=== PATIENT | female | born 1975 | race Caucasian/White ===

== ENCOUNTER → 2016-07-14 | Day surgery (SDC) | payer OTHER ==
[2016-07-10 14:20] VITALS: BMI 29.0
[~2016-07-14] MED LIST: DEXAMETHASONE SOD PHOSPHATE 10 MG/ML 1 ML VIAL IV ONE; HYDROmorphone 1 MG/ML 1 ML SYRINGE IVP PRN; LACTATED RINGERS 1,000 ML IV SCH; LIDOCAINE 1% 20 ML VIAL (10MG/ML) FOR IV START INTRADERMA PRN; LIDOCAINE 1% INJ 10MG/ML (20 ML MDV) ONE; ONDANSETRON 4 MG/2 ML VIAL IVP ONE; PROPOFOL 10 MG/ML 20 ML VIAL IV ONE; SCOPOLAMINE 1.5MG/72HR PATCH TRANSDERM ONE; SODIUM CHLORIDE 0.9% 1,000 ML IV ONE; SUCCINYLCHOLINE CHLORIDE VIAL 200 MG/10 ML VIAL IV ONE; ceFAZolin 2 GM in SODIUM CHLORIDE 0.9% 100 ML IVPB ONE; ePHEDrine 50 MG/ML 1 ML AMP ONE; fentaNYL (PF) 50 MCG/ML 2 ML AMP ONE
[2016-07-14 07:50] VITALS: RESP 16
[2016-07-14 08:20] LABS: Basophils # (A) 0.1 k/uL (0-0.2); Basophils % (A) 2 %; CH 30.1; CHCM 34.2; Eosinophils # (A) 0.3 k/uL (0-0.7); Eosinophils % (A) 5 %; HCT 42.7 % (34.0-46.0); HDW 2.54; HGB 14.4 gm/dL (11.4-16.0); Large Platelets Flag Marked; Luc # (Auto) 0.12; Luc % (Auto) 2; Lymphocytes # (A) 1.1 k/uL (1.0-4.8); Lymphocytes % (A) 18 %; MCH 29.7 pg (25.0-35.0); MCHC 33.6 g/dL (31.0-37.0); MCV 88.3 fL (80.0-100.0); Mean Platelet Volume 13.5; Monocytes # (A) 0.4 k/uL (0-1.0); Monocytes % (A) 6 %; Neutrophils # (A) 4.3 k/uL (1.3-7.7); Neutrophils % (A) 68 %; RBC 4.83 m/uL (3.80-5.40); RDW 13.7 % (11.5-15.5); WBC 6.4 k/uL (3.8-10.6); WBC (Perox) 6.23
[2016-07-14 08:49] LABS: Manual Review Performed; RBC Morphology Normal
[2016-07-14 08:50] LABS: Large Platelets Present
[2016-07-14 11:31] VITALS: TEMP 97.8
[2016-07-14 12:48] VITALS: BP 114/71; PULSE 81
--- NOTE | 2016-07-14 12:51 | OP ---
DATE OF SERVICE: SURGEON: LOS LOPEZ MD TRAFFIC SURVEY TECHNICIAN: PREOPERATIVE DIAGNOSES: 1. Acquired loss, right breast. 2. History of mastectomy. 3. History of breast cancer. POSTOPERATIVE DIAGNOSES: 1. Acquired loss, right breast. 2. History mastectomy. 3. History of breast cancer. OPERATIVE PROCEDURES: Delayed reconstruction right breast with insertion of tissue buttermaker helper and subsequent outpatient expansion. ANESTHESIA: ESTIMATED BLOOD LOSS: SPECIMENS REMOVED: COMPLICATIONS: OPERATIVE FINDINGS: DESCRIPTION OF PROCEDURE: OPERATIVE INDICATIONS: Patient is a 40-year-old female with right-sided breast cancer. She initially underwent bilateral mastectomy procedures with immediate placement of tissue expanders. The patient's initial postoperative course was uncomplicated. She did require chemotherapy and also radiation therapy. During the radiation therapy time the patient developed wound involving the right reconstructive breast which was where she was given radiation treatment and ultimately, the buttermaker helper required removal. She did heal and this completed radiation therapy, has remained healed for several months with no troubles. She desires further breast reconstruction, has elected to proceed with a second attempt of tissue expansion. She understands potential risks and complications associated with the surgery as well as the nature. The staged nature of breast reconstructive surgery. She has requested I perform this procedure today. Additionally, the patient has ITP, hematology evaluation has been obtained for the procedure and she has been cleared for the procedure. She did receive of 5 units of platelets yesterday. Her platelet count today prior surgery is 26,000. I spoke with the patient's rail car loader Dr. Bonds and he recommended additional transfusion of 1 unit of platelets at the time of surgery and felt it was safe to proceed with the procedure. The patient understands this in detail. Operative procedure summary: The patient was seen in the presurgical area. Markings were made, procedure reviewed, all questions answered. She was transported to the operating room where she was placed in supine position. Following induction of general endotracheal anesthesia, the patient was prepped and draped in the usual fashion. All surgery performed under loupe magnification. The right breast mastectomy scar was outlined in elliptical fashion, now sharply excised using a 10 blade scalpel sending the excised scar tissue to pathology. Hemostasis maintained with cautery. Cauterization was used to divide the remaining scar tissue until identifying the muscle fascia and muscle layers. Skin and subcutaneous tissue flap was then dissected off the muscle fascia and muscle where necessary to obtain sufficient exposure of the muscles, muscle layer. Incision was made through the muscle fibers following the direction of the pectoralis major muscle in a diagonal fashion dividing the muscle, exposing the prior expansion cavity. This area was heavily scarred and extensive dissection was required to release the muscle from the scar tissue for recreation of the muscular flap coverage of the buttermaker helper. Dissection was performed with cauterization and once sufficient, hemostasis maintained with cautery. Extensive irrigation performed using with several liters of saline. The cavity was sized. A tissue buttermaker helper was opened on the field after first changing gloves. The buttermaker helper was from the [employer], reference # [id number], serial #[id number] with a volume of 475 mL. The device was only handled by surgeon, irrigated with saline. All air was extracted and 50 mL of 0.9 normal saline instilled. It was inserted into the reconstructive submuscular position created and once optimally oriented, the muscle flap was closed directly over the buttermaker helper using running 3-0 Vicryl suture. Additional 50 mL of 0.9 normal saline instilled in the buttermaker helper. We placed a slight amount of tension on the muscle flap tissue. Additional irrigation was performed. Hemostasis was excellent. A 19 round Thomas channel drain placed over the muscle flap tissue, underneath the skin and subcutaneous tissue. Dissection flaps then brought out through a separate stab incision in the right lateral chest wall, sutured in place with 2-0 Prolene. The drain was cut to the appropriate length. The skin incision was now closed, approximating Herson's layer using widely spaced inverted 4-0 Monocryl and then deep dermis using inverted, interrupted 4-0 Monocryl and closing the superficial dermis and epidermis with running 5-0 Prolene. Surgical perla were cleansed with saline, dried, and postoperative bandages placed using 4 x 4's, Kerlix squares secured with paper tape. The patient's drain was connected, closed bulb suction patent. She was then awakened from her anesthetic, extubated and transferred to the recovery room in good condition with stable vital signs. There were no complications.
== END | disposition home or self-care (01) ==
LOC: OR 07:24
PROVIDERS: ATTEND Plastic Surgery
DX: Z42.1 Encounter for breast reconstruction following mastectomy (principal); Z85.3 Personal history of malignant neoplasm of breast; Z90.13 Acquired absence of bilateral breasts and nipples; Z92.21 Personal history of antineoplastic chemotherapy; Z92.3 Personal history of irradiation; D69.3 Immune thrombocytopenic purpura; J45.990 Exercise induced bronchospasm; F32.9 Major depressive disorder, single episode, unspecified; F41.9 Anxiety disorder, unspecified; K21.9 Gastro-esophageal reflux disease without esophagitis; Z79.899 Other long term (current) drug therapy; Z88.5 Allergy status to narcotic agent; Z88.4 Allergy status to anesthetic agent
CPT/HCPCS: 81025; 36430; 85025; 19357; P9035; J0330; J1100; J0690; J2405; J2001; J3010; J2704

== ENCOUNTER 2017-01-19 06:01 | Day surgery (SDC) | payer OTHER ==
[2017-01-11 15:11] VITALS: BMI 30.7
[~2017-01-19 06:01] MED LIST changes: -HYDROmorphone 1 MG/ML 1 ML SYRINGE IVP PRN; -LIDOCAINE 1% INJ 10MG/ML (20 ML MDV) ONE; -PROPOFOL 10 MG/ML 20 ML VIAL IV ONE; +Pre Op ABX Message 1 EACH MISC MISCELLANE ONE; -SODIUM CHLORIDE 0.9% 1,000 ML IV ONE; -SUCCINYLCHOLINE CHLORIDE VIAL 200 MG/10 ML VIAL IV ONE; -ceFAZolin 2 GM in SODIUM CHLORIDE 0.9% 100 ML IVPB ONE; -ePHEDrine 50 MG/ML 1 ML AMP ONE; +fentaNYL (PF) 50 MCG/ML 2 ML AMP IV PRN; -fentaNYL (PF) 50 MCG/ML 2 ML AMP ONE
[2017-01-19] MEDS ORDERED: LIDOCAINE 1% 20 ML VIAL (10MG/ML) FOR IV START INTRADERMA ONE (06:37)
[2017-01-19 07:48] LABS: Basophils # (A) 0.1 k/uL (0-0.2); Basophils % (A) 1 %; CHCM 33.6; Eosinophils # (A) 0.4 k/uL (0-0.7); Eosinophils % (A) 4 %; HCT 43.1 % (34.0-46.0); HDW 2.38; HGB 14.8 gm/dL (11.4-16.0); Large Platelets Flag Marked; Luc # (Auto) 0.22; Luc % (Auto) 3; Lymphocytes # (A) 2.1 k/uL (1.0-4.8); Lymphocytes % (A) 25 %; MCH 29.7 pg (25.0-35.0); MCHC 34.3 g/dL (31.0-37.0); MCV 86.6 fL (80.0-100.0); Mean Platelet Volume 13.4; Monocytes # (A) 0.4 k/uL (0-1.0); Monocytes % (A) 5 %; Neutrophils # (A) 5.2 k/uL (1.3-7.7); Neutrophils % (A) 62 %; RBC 4.98 m/uL (3.80-5.40); RDW 12.7 % (11.5-15.5); WBC 8.5 k/uL (3.8-10.6); WBC (Perox) 8.48
[2017-01-19 07:57] LABS: Large Platelets Present; Manual Review Performed; RBC Morphology Normal
[2017-01-19] MEDS ORDERED: ePHEDrine SULFATE/0.9% NACL/PF 50 MG/5 ML SYRINGE IV ONE (08:05)
[2017-01-19] MEDS ORDERED: NEOSTIGMINE 1 MG/ML 10 ML VIAL ONE (08:05)
[2017-01-19] MEDS ORDERED: LIDOCAINE 1% INJ 10MG/ML (20 ML MDV) ONE (08:05)
[2017-01-19] MEDS ORDERED: ROCURONIUM BROMIDE 10 MG/ML 10 ML VIAL IV ONE (08:05)
[2017-01-19] MEDS ORDERED: SODIUM CHLORIDE 0.9% 50 ML BAG ONE (08:05)
[2017-01-19] MEDS ORDERED: SUCCINYLCHOLINE CHLORIDE 100 MG/5 ML SYR IV ONE (08:05)
[2017-01-19] MEDS ORDERED: GLYCOPYRROLATE 0.2 MG/ML 2 ML VIAL ONE (08:05)
[2017-01-19] MEDS ORDERED: PHENYLEPHRINE-0.9% NACL SYG 1 MG/10 ML SYRINGE ONE (08:05)
[2017-01-19] MEDS ORDERED: SODIUM CHLORIDE 0.9% 0 ML with ceFAZolin 2,000 MG IV ONE ×2 (08:05)
[2017-01-19] MEDS ORDERED: PROPOFOL 10 MG/ML 20 ML VIAL IV ONE (08:05)
[2017-01-19] MEDS ORDERED: fentaNYL (PF) 50 MCG/ML 2 ML AMP ONE (08:05)
[2017-01-19] MEDS ORDERED: LACTATED RINGERS 1,000 ML IV ONE (09:40)
[2017-01-19 10:22] VITALS: TEMP 98.6
[2017-01-19 11:18] VITALS: PULSE 85
[2017-01-19 11:31] VITALS: BP 128/69; RESP 16
--- NOTE | 2017-01-19 12:26 | OP ---
OPERATIVE REPORT SURGEON: Dr. Dylon Plata. DATE OF SURGERY: January 19, 2017. PREOPERATIVE DIAGNOSES:: 1. Acquired absence, right and left breasts. 2. Personal history of breast cancer. 3. Personal history of bilateral mastectomy. 4. Acquired deformity of right right and left reconstructed breasts. 5. Acquired loss, right and left breast inframammary folds. POSTOPERATIVE DIAGNOSES:: 1. Acquired absence of right and left breasts. 2. Personal history of breast cancer. 3. Personal history of bilateral mastectomy. 4. Acquired deformity of right and left reconstructed breasts. 5. Acquired loss of right left breast inframammary folds. OPERATION:: 1. Replace right reconstructed breast tissue chief engineer research with silicone breast implants for breast reconstruction. 2. Revision of right reconstructed breast. 3. Replace left reconstructed breast tissue chief engineer research with silicone breast implant for breast reconstruction. 4. Revision, left reconstructed breast. 5. Reconstruction right left breast inframammary folds via local advancement flaps, total area 59 cm2. 6. Implantation of reconstructive graft from the right and left breast reconstruction, 300 cm2. ESTIMATED BLOOD LOSS:: SPECIMEN TAKEN:: OPERATIVE INDICATIONS: The patient is a 41-year-old female who has undergone bilateral mastectomies for treatment of breast cancer. She also required chemotherapy and radiation treatment. At that time of her mastectomy procedure, tissue chief engineer research reconstruction was initiated. The patient was expanded somewhat prior to radiation, but not completely. After completing radiation therapy and allowing her body to rest for 6 months, she completed expansion, is here today for the second stage of her breast reconstruction. The patient is aware of the potential risks and complications, including added risks and complications due to her ITP. I did communicate with the patient's financial recruiter, who would recommend proceeding with surgery as long as platelets were above 30. This morning's platelet count was 44,000. Additionally the patient understands other risks include infection, hematoma, seroma, asymmetry, the need for future surgery, wound healing problems, among others. She has requested I perform the surgery. NARRATIVE:: The patient was seen in the presurgical area, markings made, procedure reviewed, all questions answered. She was transported to the operating room, where she was placed in supine position. Following induction of general endotracheal anesthesia, the patient was prepped and draped in usual fashion. All surgery performed with loupe magnification. Surgery was initiated on the right side. The right breast scar was irregular and uneven. The scar was outlined in elliptical fashion, sharply excised using a 10 blade scalpel, sending the scar tissue to Pathology. Cauterization was used to divide underlying subcutaneous tissue until reaching the muscle fascial layer. Skin subcutaneous tissue flaps were then elevated off the muscle fascia. There was significant scar tissue in this layer. This was required to allow redraping of the skin to the correct contour irregularities where present. Extensive dissection was required. The muscle fascial reconstructive graft plane was divided in transverse fashion, exposing the chief engineer research. Retail Analyst was removed. The patient's expansion capsule was hypertrophic and thickened. A complete capsulotomy was made where the capsule joined the chest wall and then multiple cruciate incisions through the capsular structure released the tightness present. Hemostasis was maintained with cautery. Irrigation was performed. The right inframammary fold was now reconstructed. The area for the fold was 23 cm transversely by 1 cm vertically. The dissection was carried through the inferior capsulotomy incision, elevating skin and subcutaneous tissue flaps. Once a sufficient size area was elevated, it was advanced in a cephalad fashion and secured to the chest wall using several interrupted 2-0 Vicryl sutures. A discrete inframammary fold created on the right. Irrigation was performed. Hemostasis was excellent. Temporary breast implant sizer was open on the field. Ultimately a 500 cc sizer appeared optimal. The patient's attention was now turned toward the patient's left reconstructed breast. Again, the scar was irregular and uneven and thick. The scar was outlined in elliptical fashion, sharply excised, sending scar tissue to Pathology. A 10 blade scalpel used for this and hemostasis maintained with cautery. The skin and subcutaneous tissue flaps were then elevated off the muscle flap layer. Significantly less scarring was present on this side. Extensive dissection was required to allow redraping of the skin to correct uneven contour irregularities. Once this was completed, the muscle fascial layer was divided in transverse fashion inferior to the mastectomy scar excision site, exposing the chief engineer research. Retail Analyst was removed intact. The expansion capsule on this side was not as thick or hypertrophic as the other side. Complete capsulotomy incision was made where the capsule joint the chest wall and then multiple cruciate incisions made through the capsule to release the tightness of the structure. Inferiorly, the dissection was performed to create the left inframammary fold. This fold was more effaced than on the right side and measured 18 cm x 2 cm. Dissection was carried through the inferior capsulotomy incision, dissecting skin and subcutaneous tissue for cephalad elevation. Once the required size was obtained, the skin and subcutaneous tissue flap was advanced cephalad, secured to the chest wall expansion capsule base and then using interrupted 2-0 Vicryl in several locations, creating a discrete inframammary fold in a symmetric position to the one created on the right. Irrigation was performed. Hemostasis was excellent. Temporary breast implant sizer was opened on the field and inserted in the cavity. Ultimately, 600 mL appeared optimal and appeared to create even volume between right and left sides. The patient was evaluated in seated up position with incisions temporarily closed with thea. She was returned to supine position, all thea removed, temporary breast implant sizers removed. Extensive irrigation was performed. Hemostasis was maintained on each side with cautery and excellent. Gloves were now changed. The right-sided breast implant was opened on the field. The implants were from the [employer], memory gel breast implants; smooth, round, high-profile, style 4000 smooth. The right-sided implant measured 500 mL, reference #[id number] , serial #[id number]. Device was only handled by surgeon after irrigating with saline, inserted in the reconstructive cavity. The muscle fascial layers could not be approximated over the implant. SurgiMend measuring 10 x 15 cm had been opened onto the field, revitalized under room temperature saline now inserted into the reconstructive cavity. The SurgiMend was thin and fenestrated. It was placed in an inferior sling formation, secured to muscle fascial layers using 3-0 Vicryl simple sutures. Complete coverage of the implant was obtained. The incision was now closed, approximating deep dermal tissues using inverted interrupted 4-0 Monocryl followed by closure of skin using horizontal mattress suture in a running fashion with 5-0 Prolene. Attention was turned toward the left side. Again, gloves were changed. The left-sided breast implant opened on the field. This time, the implant measured 600 mL. Again, same style; 4000 smooth, and also a [employer] mammary gel breast implant, smooth, round, high-profile. The reference number for this device was [id number] and the serial #[id number]. Device was only handled by the surgeon. After opening, it was irrigated with saline and then inserted in the reconstructive cavity. Again, SurgiMend was required, as the muscle flap tissue could not be approximated over the implant without creasing and placing significant tension on the implant. The SurgiMend measured 10 x 15 cm, thin and fenestrated. The SurgiMend was revitalized in room temperature saline. Once ready, inserted in reconstructive cavity, oriented in an inferior sling formation and secured to the muscle fascial layers using interrupted simple 3-0 Vicryl. The incision was then closed, approximating to the deep dermis using inverted interrupted 4-0 Monocryl and the closure of the epidermis and superficial dermal layer with running horizontal mattress suture of 5-0 Prolene. Surgical perla cleansed on each side, dried, postoperative bandages placed using 1-inch paper tape that was sterile followed by 4 x 4's, ABD pads and then positioning size 3 mammary support. The patient was awakened from her anesthetic, extubated and transferred to the recovery room in good condition with stable vital signs. There were no complications. LUCYODL / IJN: [id number] /
--- NOTE | 2017-01-20 14:02 | OP ---
OPERATIVE REPORT Incomplete. See other dictation for 01-19-17 MTDD
== END 2017-01-19 12:06 | disposition home or self-care (01) ==
LOC: OR 06:01 → 6PED 10:04 → OR 12:06
PROVIDERS: ATTEND Plastic Surgery
DX: Z42.1 Encounter for breast reconstruction following mastectomy (principal); Z85.3 Personal history of malignant neoplasm of breast; Z98.82 Breast implant status; Z90.13 Acquired absence of bilateral breasts and nipples; L08.9 Local infection of the skin and subcutaneous tissue, unspecified; D69.3 Immune thrombocytopenic purpura; F32.9 Major depressive disorder, single episode, unspecified; J45.990 Exercise induced bronchospasm; Z87.891 Personal history of nicotine dependence; Z92.3 Personal history of irradiation; Z92.21 Personal history of antineoplastic chemotherapy; Z88.5 Allergy status to narcotic agent; Z88.8 Allergy status to other drugs, medicaments and biological substances; Z79.899 Other long term (current) drug therapy
CPT/HCPCS: 11970; 88304; 85025; 15777; C1789; C1763; J1100; J2710; J2405; J2001; J3010; J0690; J2370; J0330; J2704

== ENCOUNTER → 2017-03-31 | Outpatient (CLI) | payer OTHER ==
--- NOTE | 2017-03-31 09:29 | CT ---
EXAMINATION TYPE: CT ChestAbdPelvis w con DATE OF EXAM: 03/31/2017 COMPARISON: 07/09/2015, 07/27/2015, 05/22/2015 HISTORY: Breast Cancer CT DLP: 1157 mGycm Automated exposure control for dose reduction was used. CONTRAST: CT scan of the chest, abdomen and pelvis is performed with Oral Contrast and with IV Contrast, patien t injected with 100 ml mL of Omnipaque 300. FINDINGS: The heart is normal size without pericardial effusion. Lung bases are clear with mild dependent atele ctasis. No focal liver lesion or biliary ductal dilatation. Hepatic steatosis noted. Portal venous system is patent. Cholecystectomy clips are present. Adrenal glands, right kidney, and pancreas appear within normal limits. Left kidney shows a tiny subc entimeter hypodensity along the anterior lower pole, too small for accurate CT characterization is st able. Spleen is borderline enlarged at 13.7 cm. No mesenteric or retroperitoneal lymphadenopathy. Scattered mild stool throughout the colon without pericolonic inflammatory change. While the appendix is not discretely visualized, no focal inflammatory changes within the right lower quadrant to suppo rt acute appendicitis. Bladder is urine distended. Uterus and both ovaries are visualized. Hypodense area within the right ovary is stable may represent ovarian cyst. Rectum appears normal. No abnormal fluid collection the pelvis or pelvic lymphadenopathy. No osseous destructive process. Low density within the pretracheal space and mediastinum measures approximately 20 Hounsfield units m ay represent smaller amount of pericardial fluid recess versus low density adenopathy unchanged from previous exam. There are now subsegmental consolidation within the anterior segment of the right upper lobe. This co uld represent an area of pneumonitis. Pulmonary arteries enhance normally by standard technique. If t he patient had a previous or recent radiation treatment planning consider radiation pneumonitis. Pleural-based thickening is noted with a small area of nodularity in the right upper lobe posteriorly which likely is postinflammatory. Previous breast implant surgery noted. Hypodensity within the tail the pancreas measures -9 Hounsfield units likely representing a small lip bashir or intrapancreatic fat. Could be followed on a 6 month basis given the small size measuring 4 mm IMPRESSION: 1. No diagnostic evidence of metastases. Low density within the anterior mediastinum in the pretrache al space is stable dating back to previous exams and PET scan. Low density adenopathy with short axis measurement of 9 mm or given the area did not demonstrate abnormal uptake by previous PET scan a sma ll amount of fluid within the pericardial recess may be the etiology. 2. Borderline splenomegaly at 13.7 cm. 3. Tiny subcentimeter lesion inferior pole left kidney, too small for accurate CT characterization. F indings stable. 4. Interval development of subsegmental consolidation anterior segment right upper lobe. Findings may been the basis of an atelectasis or pneumonitis. If the patient has had previous radiation than radi ation pneumonitis would be consideration. Correlate clinically. 5. New low density lesion tail the pancreas measures a -9 Hounsfield units likely related to fat. Sub sequent follow-up CT scan short-term basis recommended given small size of the lesion.
--- NOTE | 2017-03-31 09:50 | US ---
EXAMINATION TYPE: US venous doppler duplex LE BI DATE OF EXAM: 03/31/2017 9:06 AM COMPARISON: NONE CLINICAL HISTORY: M79.661 M79.662 nicolas lower leg pain. History of chronic DVT left leg per patient. SIDE PERFORMED: Bilateral TECHNIQUE: The lower extremity deep venous system is examined utilizing real time linear array sonog jessica with graded compression, doppler sonography and color-flow sonography. VESSELS IMAGED: External Iliac Vein (EIV) Common Femoral Vein Deep Femoral Vein Greater Saphenous Vein * Femoral Vein Popliteal Vein Small Saphenous Vein * Proximal Calf Veins (* superficial vessels) Right Leg: Negative for DVT Left Leg: Negative for DVT Grayscale, color doppler, spectral doppler imaging performed of the deep veins of the bilateral lower extremities. There is normal flow, compressibility, vascular waveforms. IMPRESSION: No ultrasound evidence for acute DVT in either lower extremity.
--- NOTE | 2017-03-31 11:59 | NM ---
EXAMINATION TYPE: NM bone scan whole body DATE OF EXAM: 03/31/2017 COMPARISON: CT chest abdomen pelvis same day and to prior CT chest 07/09/2015, nuclear medicine PET/CT 07/27/2015 HISTORY: Breast cancer Delayed whole-body scanning was performed following the injection of 28.5 mCi Tc 99m MDP. Images acq uired 3 hours post injection. FINDINGS: Small focus of increased radio pharmaceutical uptake is noted to level of anterior right sixth rib wh ich corresponds to a sclerotic focus on CT, possibly the seventh anterior left rib. A sclerotic focus in the anterior right sixth rib has developed in the interval compared to previous CT scan and PET C T. Soft tissue uptake is normal. Uptake in the feet and ankles, wrists and hands, shoulders is likely degenerative. IMPRESSION: Correlate for history of trauma or possibly postradiation treatment to the right sixth rib anteriorly . Metastatic disease is not excluded.
== END | disposition home or self-care (01) ==
LOC: RADCTMAIN 07:08
PROVIDERS: ATTEND Internal Medicine Hematology & Oncology
DX: C50.411 Malignant neoplasm of upper-outer quadrant of right female breast (principal); J18.1 Lobar pneumonia, unspecified organism; K86.89 Other specified diseases of pancreas; R16.1 Splenomegaly, not elsewhere classified; R59.0 Localized enlarged lymph nodes; Z88.8 Allergy status to other drugs, medicaments and biological substances
CPT/HCPCS: 93970; 71260; 74177; 78306; A9503; Q9967

== ENCOUNTER → 2017-06-01 | Outpatient (CLI) | payer OTHER ==
[2017-06-01 18:59] LABS: Albumin 4.8 g/dL (3.5-5.0); Bilirubin, Delta 0.3 mg/dL (0.0-0.2); Bilirubin,Unconjugated 0.4 mg/dL (0.0-1.1); Total Bilirubin 0.7 mg/dL (0.2-1.3); Total Protein 7.9 g/dL (6.3-8.2)
[2017-06-02 19:58] LABS: Iron Saturation 34.19 (12.00-45.00)
[2017-06-02 20:45] LABS: Hepatitis B Core IgM Non-Reactive (Non-Reactive)
[2017-06-02 21:48] LABS: Hepatitis A Antibody IgM Non-Reactive (Non-Reactive)
[2017-06-03 12:15] LABS: Ceruloplasmin 31.5 mg/dL (20.0-60.0)
== END | disposition home or self-care (01) ==
LOC: MMGSC 12:48
PROVIDERS: ATTEND Family Medicine
DX: R79.89 Other specified abnormal findings of blood chemistry (principal)
CPT/HCPCS: 36415; 80074; 80076; 82103; 82390; 82728; 83516; 83540; 83550

== ENCOUNTER → 2017-06-10 | Outpatient (CLI) | payer OTHER ==
--- NOTE | 2017-06-10 10:23 | US ---
EXAMINATION TYPE: US abdomen limited DATE OF EXAM: 06/10/2017 COMPARISON: CT 2016, US 2014 CLINICAL HISTORY: R94.5 Elevated liver function. Elevated liver enzymes, history of cholecystectomy EXAM MEASUREMENTS: Liver Length: 15.9 cm Gallbladder Wall: surgically absent CBD: 0.5 cm Right Kidney: 9.6 x 5.4 x 4.9 cm Pancreas: visualized portions wnl, tail obscured by overlying midline bowel gas Liver: increased echogenicity throughout, increased attenuation, decreased visualization of vessels suggestive of fatty infiltrate Gallbladder: surgically absent Evidence for sonographic Helm's sign: no CBD: visualized portions wnl, limited by overlying bowel gas Right Kidney: no hydro or masses seen IMPRESSION: 1. Moderate fatty infiltration liver. 2. Postsurgical changes. 3. No acute ultrasound abnormality.
== END | disposition home or self-care (01) ==
LOC: RADUSWWP 08:22
PROVIDERS: ATTEND Family Medicine
DX: K76.0 Fatty (change of) liver, not elsewhere classified (principal); Z98.890 Other specified postprocedural states
CPT/HCPCS: 76705

== ENCOUNTER → 2017-08-31 | Outpatient (CLI) | payer OTHER ==
--- NOTE | 2017-09-01 10:18 | US ---
EXAMINATION TYPE: US axilla RT DATE OF EXAM: 08/31/2017 COMPARISON: NONE CLINICAL HISTORY: R68.89 Abnormal Clinical Findings. Ed mastectomy 2014 ,cancer rt side , prophylact ic left breast, ed implants with history of infection from implant on rt side pain rt axilla , lateral implant area was where ribs felt per dr church. But i included that area per pt request and or isidro was abnormal clinical finding. rt axilla Patient's right implant is noted incidentally at its lateral margin. No evident mass. wnl IMPRESSION: No abnormality evident in the right axilla, follow-up as indicated
== END ==
LOC: RADUSWWP 16:48
PROVIDERS: ATTEND Internal Medicine Hematology & Oncology
DX: R68.89 Other general symptoms and signs (principal); C50.411 Malignant neoplasm of upper-outer quadrant of right female breast; Z88.8 Allergy status to other drugs, medicaments and biological substances; Z88.5 Allergy status to narcotic agent

== ENCOUNTER → 2017-12-16 | Outpatient (CLI) | payer OTHER ==
--- NOTE | 2017-12-17 02:10 | CT ---
EXAMINATION TYPE: CT abdomen pelvis w con DATE OF EXAM: 12/16/2017 COMPARISON: 03/31/2017 HISTORY: 22-year-old female Elevated liver enzymes. History of breast cancer. TECHNIQUE: Contiguous axial scanning of the abdomen and pelvis following administration of 100 ml Iso zoe 300 IV contrast. Delayed images through the kidneys and coronal/sagittal reconstructions perform ed. CT DLP: 880.9 mGycm Automated exposure control for dose reduction was used. FINDINGS: Heart normal size without pericardial effusion. The visualized bilateral breast implants. Lung bases clear without pleural effusion. Tiny hiatal hernia. Liver enlarged measuring 21.5 cm with a marked diffuse low-attenuation. No focal lesion seen. No bili candy ductal dilatation. Portal venous system is patent. Cholecystectomy clips. Adrenal glands, right kidney, spleen, pancreas appear within normal limits. Ti ny subcentimeter hypodensity medial upper pole and medial lower pole left kidney too small for accura te CT characterization, likely tiny cysts. No dilated small bowel, free fluid, or free air. No mesenteric or retroperitoneal lymphadenopathy. Oral contrast has progressed to the proximal transverse colon. There is some mural-based thickening a long the lower ascending colon suspected to represent stool material, refer to axial image 52 and cor onal image 28. No pericolonic inflammatory change. Bladder partially distended. Uterus and both ovaries are visualized. No abnormal fluid collection in the pelvis or pelvic lymphadenopathy. Bones: No osseous destructive process. IMPRESSION: 1. HEPATOMEGALY (21.5 CM) WITH MARKED HEPATIC STEATOSIS. NO BILIARY DUCTAL DILATATION. 2. MURAL BASED THICKENING ALONG THE LOWER ASCENDING COLON SUSPECTED TO REPRESENT ADHERENT STOOL MATER IAL. CORRELATE WITH FECAL OCCULT BLOOD TESTING TO THE NEED FOR DIRECT VISUALIZATION. 3. TINY HIATAL HERNIA.
== END | disposition home or self-care (01) ==
LOC: RADCTMAIN 14:11
PROVIDERS: ATTEND Internal Medicine Hematology & Oncology
DX: K76.0 Fatty (change of) liver, not elsewhere classified (principal); K63.89 Other specified diseases of intestine
CPT/HCPCS: 74177; Q9967

== ENCOUNTER → 2018-01-15 | Outpatient (CLI) | payer OTHER ==
--- NOTE | 2018-01-17 19:27 | PE ---
EXAMINATION TYPE: PET CT fusion skull to thigh DATE OF EXAM: 01/15/2018 CLINICAL HISTORY: 42-year-old female with right breast cancer restaging diagnosed in July 2015 statu s post surgery in July 2016 and chemoradiation completed in 2017. Bilateral mastectomies. TECHNIQUE: Following the intravenous administration of 12.1 mCi of F-18 FDG, whole body images are performed from the skull base to the midthigh. Images are reviewed on the computer in the coronal, a xial, and sagittal planes. Reconstructed rotating images are created on independent workstation and reviewed on the computer. A localization and attenuation correction CT is performed in conjunction with the PET scan. Glucose level: 99 mg/dL CTDI: 5.24 mGy DLP: 466.09 mGy-cm COMPARISON: Abdomen and pelvis 12/16/2017 and chest 03/31/2017 FINDINGS: PET: Symmetrical bilateral palatine tonsillar uptake, max SUV 5.6, likely physiologic. Additional small area of focal uptake in the region of the right lobe of the thyroid gland, max SUV 2 .4. Thyroid ultrasound could assess for any underlying nodule. Bilateral breast implants. There is skin and trabecular thickening along the right breast reconstruct ion with associated increased uptake suggestive of chronic posttreatment changes. Hypodensity in the paratracheal region extending along the pretracheal region extending up to 4.1 x 1 .0 cm is unchanged from 03/31/2017 and shows no discrete FDG uptake, possible fluid along the superio r pericardial recess. Average liver SUV 1.3. Variable [id number] FDG uptake throughout bowel loops suggest physiologic uptake. 6 mm low-density area in the pancreatic tail is unchanged and shows no FDG uptake. Likely interposed fat. Otherwise, physiologic FDG uptake within the abdomen and pelvis. Variable mild to borderline moderate degenerative uptake throughout the marrow structures probably du e to red marrow hyperplasia. ATTENUATION CORRECTION CT: Visualized paranasal sinuses are clear. No cervical lymph adenopathy identified. Heart upper limits of normal in size without pericardial effusion. Mild diffuse bronchial wall thick ening without consolidation or pleural effusion. Marked hepatic steatosis. Small hiatal hernia. Cholecystectomy clips. No dilated small bowel, free fl uid, or free air. No mesenteric or retroperitoneal lymphadenopathy. Bladder nondistended. Uterus and both ovaries are visualized. No abnormal fluid collection the pelvis or pelvic lymphadenopathy. IMPRESSION: 1. Bilateral mastectomies with breast reconstructions and posttreatment changes along the right chest wall. 2. No suspicious CT findings or metabolic evidence for recurrent or metastatic disease. 3. Mild uptake within a right thyroid nodule. Thyroid ultrasound can further evaluate. 4. Marked hepatic steatosis and small hiatal hernia.
== END | disposition home or self-care (01) ==
LOC: RADPETMAIN 08:35
PROVIDERS: ATTEND Internal Medicine Hematology & Oncology
DX: E04.1 Nontoxic single thyroid nodule (principal); C50.411 Malignant neoplasm of upper-outer quadrant of right female breast; Z90.13 Acquired absence of bilateral breasts and nipples
CPT/HCPCS: 78815; A9552

== ENCOUNTER 2018-02-01 09:17 | Day surgery (SDC) | payer OTHER ==
[2018-01-28 11:18] VITALS: BMI 31.4
[~2018-02-01 09:17] MED LIST changes: -Pre Op ABX Message 1 EACH MISC MISCELLANE ONE; -fentaNYL (PF) 50 MCG/ML 2 ML AMP IV PRN
[2018-02-01 10:22] VITALS: RESP 16; TEMP 97.4
[2018-02-01] MEDS ORDERED: PROPOFOL 10 MG/ML 20 ML VIAL IV ONE ×2 (10:56→11:20)
--- NOTE | 2018-02-01 11:23 | P.PCN ---
Date of Procedure: 02/01/18 Procedure(s) Performed: Procedure: Esophagogastroduodenoscopy and biopsy. Preoperative diagnosis: Chronic reflux symptoms requiring therapy. Postoperative diagnosis: 1. Small sliding hiatal hernia with no obvious esophagitis or complicated reflux disease. 2. Mild antral gastritis. 3. Multiple biopsies obtained from the duodenum, antrum and esophagus. Preparation and sedation: Was provided by anesthesia. Brief clinical history: The patient is a 42-year-old female who has been having issues with reflux for many years and has taken PPIs for more than 20 years. She has recurrence of her heartburn if she stops her medications even for 1 day. She has no other alarm symptoms. She had a prior EGD around 2009. This evaluation is to assess for complicated reflux disease or other pathology. Procedure: With the patient on her left lateral decubitus position and after informed consent and adequate sedation, I passed the Olympus-GIF 160 video upper endoscope through the cricopharyngeus down the esophagus. GE junction was around 35 cm from the incisors and there was a small sliding hiatal hernia but no obvious esophagitis or complicated reflux disease. There were no tumors or obstruction. The endoscope was then passed into the stomach which was insufflated with air and inspected in detail including the retroflex view in the cardia. There was some mottling and erythema in the antrum but no ulcers or erosions. Pyloric channel, duodenal bulb, post bulbar area and descending duodenum appeared within normal limits. Because of her symptoms, I obtained biopsies from the duodenum, antrum and esophagus then the endoscope was withdrawn. The patient tolerated the procedure well. Plan: The patient was reassured. Will await the biopsy results and make further plans based on her course and biopsy results. She will follow-up with you as planned and I will be happy to see in the office if her symptoms change.
[2018-02-01 11:41] VITALS: BP 116/75; PULSE 74
== END 2018-02-01 11:58 | disposition home or self-care (01) ==
LOC: ORWHC2ENDO 09:17
DX: K29.50 Unspecified chronic gastritis without bleeding (principal); K44.9 Diaphragmatic hernia without obstruction or gangrene; K21.0 Gastro-esophageal reflux disease with esophagitis; J45.909 Unspecified asthma, uncomplicated; Z86.718 Personal history of other venous thrombosis and embolism; D69.3 Immune thrombocytopenic purpura; Z90.49 Acquired absence of other specified parts of digestive tract; Z85.3 Personal history of malignant neoplasm of breast; Z88.4 Allergy status to anesthetic agent; Z87.891 Personal history of nicotine dependence; Z79.899 Other long term (current) drug therapy
CPT/HCPCS: 88305; 43239; J2704

== ENCOUNTER → 2018-09-19 | Outpatient (CLI) | payer OTHER ==
[2018-09-19 10:14] LABS: Anion Gap 11 mmol/L; Blood Urea Nitrogen 15 mg/dL (7-17); Carbon Dioxide 26 mmol/L (22-30); Chloride 103 mmol/L (98-107); Glucose 94 mg/dL (74-99); Potassium 4.2 mmol/L (3.5-5.1); Sodium 140 mmol/L (137-145)
[2018-09-19 10:28] LABS: Basophils # (A) 0.1 k/uL (0-0.2); Basophils % (A) 2 %; Eosinophils # (A) 0.3 k/uL (0-0.7); Eosinophils % (A) 4 %; HCT 46.3 % (34.0-46.0); Lymphocytes # (A) 2.2 k/uL (1.0-4.8); Lymphocytes % (A) 29 %; MCH 27.9 pg (25.0-35.0); MCHC 32.4 g/dL (31.0-37.0); Mean Platelet Volume 14.6; Monocytes # (A) 0.4 k/uL (0-1.0); Monocytes % (A) 5 %; Neutrophils # (A) 4.4 k/uL (1.3-7.7); Neutrophils % (A) 57 %; RBC 5.38 m/uL (3.80-5.40); RDW 14.2 % (11.5-15.5); WBC 7.7 k/uL (3.8-10.6)
[2018-09-19 12:35] LABS: Large Platelets Present; Platelet Count 38 k/uL (150-450)
== END | disposition home or self-care (01) ==
LOC: LABPAT 08:40
PROVIDERS: ATTEND Internal Medicine Hematology & Oncology
DX: Z01.812 Encounter for preprocedural laboratory examination (principal); C50.919 Malignant neoplasm of unspecified site of unspecified female breast; Z17.0 Estrogen receptor positive status [ER+]
CPT/HCPCS: 80051; 82565; 82947; 84520; 85025; 87086

== ENCOUNTER 2018-09-27 06:01 | Day surgery (SDC) | payer OTHER ==
[2018-09-22 13:27] VITALS: BMI 33.1
[~2018-09-27 06:01] MED LIST changes: +ACETAMINOPHEN IV (For NPO) 1,000 MG in EMPTY BAG 1 BAG IVPB ONE; -LACTATED RINGERS 1,000 ML IV SCH; -LIDOCAINE 1% 20 ML VIAL (10MG/ML) FOR IV START INTRADERMA PRN; +ceFAZolin IN SWFI 2 GM/20 ML SYRINGE IVP ONE; +fentaNYL (PF) 50 MCG/ML 2 ML AMP IV PRN
[2018-09-27] MEDS: LACTATED RINGERS 1,000 ML IV SCH ×3 (06:45→16:36)
[2018-09-27] MEDS ORDERED: PROPOFOL 10 MG/ML 20 ML VIAL IV ONE (07:34)
[2018-09-27] MEDS ORDERED: ACETAMINOPHEN IV (For NPO) 1,000 MG/100 ML VIAL ONE (07:34)
[2018-09-27] MEDS ORDERED: fentaNYL (PF) 50 MCG/ML 2 ML AMP ONE (07:34)
[2018-09-27] MEDS ORDERED: GLYCOPYRROLATE 0.2 MG/ML 2 ML VIAL ONE (07:34)
[2018-09-27] MEDS ORDERED: SUCCINYLCHOLINE CHLORIDE 100 MG/5 ML SYR IV ONE (07:34)
[2018-09-27] MEDS ORDERED: ROCURONIUM BROMIDE 10 MG/ML 10 ML VIAL IV ONE (07:34)
[2018-09-27] MEDS ORDERED: LIDOCAINE 1% INJ 10MG/ML (20 ML MDV) ONE (07:34)
[2018-09-27] MEDS ORDERED: NEOSTIGMINE 1 MG/ML 10 ML VIAL ONE (07:34)
[2018-09-27] MEDS ORDERED: Acetaminophen-Codeine 300-30mg TAB PO PRN ×2 (07:37)
[2018-09-27] MEDS ORDERED: SIMETHICONE 80 MG CHEWABLE PO PRN (07:37)
[2018-09-27] MEDS ORDERED: METOCLOPRAMIDE 5 MG/ML 2 ML VIAL IVP PRN (07:37)
[2018-09-27] MEDS ORDERED: ONDANSETRON 4 MG/2 ML VIAL IVP PRN (07:37)
[2018-09-27] MEDS ORDERED: BUPIVACAIN-EPI 0.25%-1:200,000 30 ML VIAL SQ ONE (08:05)
[2018-09-27] MEDS ORDERED: SENNOSIDES-DOCUSATE SODIUM 1 EACH TAB PO SCH (09:00)
[2018-09-27] MEDS ORDERED: FLUoxetine HCL 20 MG CAP PO SCH (09:00)
[2018-09-27] MEDS ORDERED: LACTATED RINGERS 1,000 ML IV ONE (09:29)
[2018-09-27] MEDS ORDERED: IBUPROFEN IV 800 MG in SODIUM CHLORIDE 0.9% 250 ML IV ONE (09:40)
--- NOTE | 2018-09-27 09:40 | P.OP ---
Date of Procedure: 09/27/18 Preoperative Diagnosis: Breast cancer survivor, positive her 2 nu mutation Postoperative Diagnosis: same Procedure(s) Performed: Robotic-assisted vaginal hysterectomy, bilateral salpingo-oophorectomy, diagnostic cystoscopy Anesthesia: CAMPBELL Surgeon: Jessica Leavitt Itinerant Teacher Assistant #1: Gurjit Ferreira Estimated Blood Loss (ml): 25 IV fluids (ml): 1,400 Urine output (ml): 150 Pathology: other Condition: stable Disposition: PACU Indications for Procedure: This very pleasant 42-year-old 4 para 4 with a history of 4 vaginal deliveries underwent bilateral mastectomy for breast cancer and was found to be her 2 nu positive. Patient has been on Lupron to suppress her estrogen and request definitive treatment with hysterectomy, bilateral salpingo-oophorectomy Operative Findings: Normal uterus tubes and ovaries were appreciated upper abdomen was visualized and normal gallbladder was noted to be absent due to prior cholecystectomy Description of Procedure: Patient was seen in the preoperative area and informed consent was obtained. In the office patient was counseled on the risks of surgery including but not limited to infection, bleeding and increased bleeding due to her history of ITP patient was given platelets in the preoperative area in addition. Patient was counseled on the risks of injury to the bladder/bowel/other pelvic structures. Patient stated understanding and wished to proceed. Patient was taken to the operating suite where general anesthesia was obtained without difficulty by the anesthesia department. She was then prepped and draped in the normal sterile fashion in the dorsal lithotomy position. A Luna catheter was then placed under sterile technique. A weighted speculum was placed in the posterior vaginal vault the anterior lip of the cervix was visualized and grasped with a single-tooth tenaculum the cervix was then serially dilated and V care uterine manipulator was advanced into the uterus as a means to manipulate the uterus throughout the procedure. The balloon was insufflated with 10 mL of air, in the cervical cap was placed snugly against the cervix. All instruments were removed from the patient's vaginal vault at this time. Attention was then turned to the patient's abdomen where approximately 2 fingerbreadths above the umbilicus a small skin incision is made through the skin incision the Veress needle was placed. Once appears needles deemed to be in the proper position with a drop of CO2 pressure with insufflation of CO2 gas CO2 insufflation was allowed to occur. Approximately 3 L of gas were used to obtain pneumoperitoneum. The incision was then elongated to 12 mm and a 12 mm trocar and sleeve is placed through the incision and toward the pneumoperitoneum. At this time the additional port sites are placed at 10 cm lateral and 3 cm inferior to the midline port these are 8 mm ports and placed under direct visualization. Then in the left upper quadrant a 12 mm trocar and sleeve is placed under direct visualization. At this time the above noted findings were visualized and the robot was docked in the usual fashion. In the right operative arm the monopolar scissors is placed in the left operative arm the bipolar forceps is placed. Attention was then turned to the patient's left infundibulopelvic ligament which was grasped quickly distally and proximally and divided this continued through the broad ligament toward the round which was coagulated distally and proximally and divided hemostasis was appreciated throughout. The bladder flap was then created using sharp and blunt dissection, the descending branch of the uterine artery was then visualized coagulated distally and proximally and divided. Attention was then turned the patient's right infundibulopelvic ligament which was coagulated distally and proximally and divided this continued through the broad and toward the round which was coagulated distally and proximally and divided. The bladder flap from the right was then created using sharp and blunt dissection. The uterine artery was visualized coagulated distally and proximally and divided. Hemostasis was appreciated throughout. Once the bladder was noted to be far away from the operating field the only remaining attachment was a vaginal attachment therefore colpotomy incision was made in a circumferential fashion the uterus was then del ivered through the vaginal opening. The pelvis was then copiously irrigated hemostasis was appreciated and the vaginal cuff was closed with [id number] sutures of 0 Vicryl. 5 sutures were used to obtain closure. Hemostasis was appreciated but due to her history of ITP FloSeal was placed along the vaginal cuff. At this time all instruments were removed from the patient's abdomen and the da Michael was undocked in the usual fashion. Attention was then turned the patient's Luna catheter which was removed without difficulty and a cystoscopy was performed. A cystoscope was placed through the urethra. The bladder the bladder bubble was visualized and both ureteral orifices were noted to be spilling clear yellow urine. A cystoscopy fluid was removed and the Luna catheter was replaced. The skin incisions were then closed with 4-0 Vicryl in a subcuticular fashion Steri-Strips and sterile dressings were applied as needed. The vaginal vault was then cleared of any remnant clots and hemostasis was appreciated. The all counts are correct 2 patient tolerated procedure well and was taken the recovery room awake and in stable condition.
[2018-09-27] MEDS ORDERED: HYDROmorphone 1 MG/ML 1 ML SYRINGE IVP ONE ×3 (10:19→10:39)
[2018-09-28 07:45] VITALS: BP 154/86; PULSE 65; RESP 18; TEMP 98.2
--- NOTE | 2018-09-28 08:51 | P.DS ---
Providers Date of admission: 09/27/2018 Expected date of discharge: 09/28/18 Attending physician: Jessica Leavitt Primary care physician: Arlin Chen - Discharge Diagnosis(es) (1) HER2-positive carcinoma of breast Current Visit: Yes Status: Acute (2) Breast cancer Current Visit: No Status: Acute Priority: Medium (3) ITP (idiopathic thrombocytopenic purpura) Current Visit: No Status: Chronic Priority: Medium Hospital Course: This very pleasant 42-year-old female is a known breast cancer survivor with positive her 2 nu receptor positivity noted in her breast cancer. Patient has been on Lupron to decrease her estrogen load, she desired definitive treatment/risk reducing surgery given her receptor positive status. Patient was counseled in the office about the risks of hysterectomy/oophorectomy and wished to proceed with this procedure. Patient underwent robotic-assisted vaginal hysterectomy, bilateral salpingo-vitrectomy, diagnostic cystoscopy on 09/27. Patient did well throughout surgery. Minimal blood loss was noted despite her history of ITP. Patient did receive a 6 pack of platelets prior to surgery and then in addition just after surgery started. Patient's surgery went well for further details on the surgery please see the operative report. Patient's postoperative course has been uneventful. This morning she is ambulating and voiding without difficulty. She denies any vaginal bleeding. She has taken 1 Tylenol No. 3 in her postoperative period. She does wish discharge home this morning. Patient Condition at Discharge: Good Plan - Discharge Summary Discharge Rx Participant: Yes New Discharge Prescriptions: No Action Omeprazole [PriLOSEC] 20 mg PO QAM ALPRAZolam 0.25 mg PO DAILY PRN PRN Reason: Anxiety FLUoxetine HCL [PROzac] 20 mg PO DAILY Chlorpheniramine Maleate [Chlor-Trimeton] 4 mg PO DAILY PRN PRN Reason: ALLERGY SX Lupron Inj (Unknown Dose) 1 injection IM Q90D Phentermine HCl [Adipex-P] 0.5 tab PO DAILY Multivit with Calcium,Iron,Min [Women's Multivitamin] 1 each PO DAILY Discharge Medication List ALPRAZolam 0.25 mg PO DAILY PRN 01/11/15 [History] Omeprazole [PriLOSEC] 20 mg PO QAM 01/11/15 [History] FLUoxetine HCL [PROzac] 20 mg PO DAILY 07/10/16 [History] Chlorpheniramine Maleate [Chlor-Trimeton] 4 mg PO DAILY PRN 01/28/18 [History] Lupron Inj (Unknown Dose) 1 injection IM Q90D 01/28/18 [History] Phentermine HCl [Adipex-P] 0.5 tab PO DAILY 01/28/18 [History] Multivit with Calcium,Iron,Min [Women's Multivitamin] 1 each PO DAILY 09/22/18 [History] Follow up Appointment(s)/Referral(s): Jessica Leavitt DO [Doctor of Osteopathic Medicine] - 2 Weeks Patient Instructions/Handouts: Laparoscopic Hysterectomy (DC), Laparoscopic Hysterectomy (GEN) Discharge Disposition: HOME SELF-CARE
[2018-09-28 09:25] LABS: Basophils # (A) 0.1 k/uL (0-0.2); Basophils % (A) 0 %; Eosinophils # (A) 0.1 k/uL (0-0.7); Eosinophils % (A) 1 %; HGB 14.5 gm/dL (11.4-16.0); Lymphocytes # (A) 2.5 k/uL (1.0-4.8); Lymphocytes % (A) 15 %; MCH 28.3 pg (25.0-35.0); MCHC 32.2 g/dL (31.0-37.0); Mean Platelet Volume 13.3; Monocytes # (A) 0.7 k/uL (0-1.0); Monocytes % (A) 4 %; Neutrophils # (A) 13.1 k/uL (1.3-7.7); Neutrophils % (A) 78 %; RBC 5.12 m/uL (3.80-5.40); WBC 16.7 k/uL (3.8-10.6)
[2018-09-28 09:26] LABS: Platelet Count 69 k/uL (150-450)
== END 2018-09-28 09:40 | disposition home or self-care (01) ==
LOC: OR 06:01 → 4FBP 09:54 → OR 09-28 09:40
PROVIDERS: ATTEND Obstetrics & Gynecology Obstetrics
DX: Z17.0 Estrogen receptor positive status [ER+] (principal); Z90.13 Acquired absence of bilateral breasts and nipples; Z85.3 Personal history of malignant neoplasm of breast; N83.292 Other ovarian cyst, left side; N83.291 Other ovarian cyst, right side; D69.3 Immune thrombocytopenic purpura; D45 Polycythemia vera; D68.8 Other specified coagulation defects; J45.990 Exercise induced bronchospasm; Z86.19 Personal history of other infectious and parasitic diseases; F41.9 Anxiety disorder, unspecified; F32.9 Major depressive disorder, single episode, unspecified; Z87.891 Personal history of nicotine dependence; Z80.3 Family history of malignant neoplasm of breast; Z86.718 Personal history of other venous thrombosis and embolism; Z22.8 Carrier of other infectious diseases; Z79.890 Hormone replacement therapy; Z79.899 Other long term (current) drug therapy; Z88.4 Allergy status to anesthetic agent; Z88.5 Allergy status to narcotic agent
CPT/HCPCS: 58552; S2900; 36415; 36430; 81025; 85025; 86850; 86900; 86901; 88307

== ENCOUNTER → 2019-04-14 | Outpatient (CLI) | payer OTHER ==
--- NOTE | 2019-04-14 14:42 | US ---
EXAMINATION TYPE: US venous doppler duplex LE LT DATE OF EXAM: 04/14/2019 2:31 PM COMPARISON: NONE CLINICAL HISTORY: Left Lower Ext I82.5Z9 deep vein thromb. Edema left leg. History of DVT 10 years ag o SIDE PERFORMED: left TECHNIQUE: The lower extremity deep venous system is examined utilizing real time linear array sonog jessica with graded compression, doppler sonography and color-flow sonography. VESSELS IMAGED: External Iliac Vein (EIV) Common Femoral Vein Deep Femoral Vein Greater Saphenous Vein * Femoral Vein Popliteal Vein Small Saphenous Vein * Proximal Calf Veins (* superficial vessels) Left Leg: No evidence of acute DVT as on prior exam IMPRESSION: No evidence for DVT at this time.
== END | disposition home or self-care (01) ==
LOC: RADUSWWP 14:06
PROVIDERS: ATTEND Internal Medicine Hematology & Oncology
DX: I82.5Z9 Chronic embolism and thrombosis of unspecified deep veins of unspecified distal lower extremity (principal); Z88.4 Allergy status to anesthetic agent; Z88.5 Allergy status to narcotic agent

== ENCOUNTER → 2019-04-14 | Outpatient (CLI) | payer OTHER ==
--- NOTE | 2019-04-14 14:55 | XR ---
EXAMINATION TYPE: XR knee complete LT DATE OF EXAM: 04/14/2019 CLINICAL HISTORY: pain TECHNIQUE: Three views of the left knee are obtained. COMPARISON: None. FINDINGS: There is no acute fracture/dislocation. The tri-compartment joint spaces appear within no rmal limits. The overlying soft tissue appears unremarkable. IMPRESSION: There is no acute fracture or dislocation ICD 10 NO FRACTURE, INITIAL EVALUATION
== END | disposition home or self-care (01) ==
LOC: RADXRMAIN 14:36
PROVIDERS: ATTEND Internal Medicine Hematology & Oncology
DX: C50.411 Malignant neoplasm of upper-outer quadrant of right female breast (principal); D69.3 Immune thrombocytopenic purpura; J45.909 Unspecified asthma, uncomplicated; Z17.0 Estrogen receptor positive status [ER+]

== ENCOUNTER → 2020-05-08 | Outpatient (CLI) | payer OTHER ==
--- NOTE | 2020-05-08 15:48 | CONS ---
CONSULTATION DATE OF SERVICE: 05/08/2020 This 44-year-old lady had been evaluated in the sleep center for possible obstructive sleep apnea-hypopnea syndrome. HISTORY OF PRESENT ILLNESS/SLEEP WAKE EVALUATION: Patient usual sleep schedule on working days from 11 p.m. to 4:30 a.m.; on weekend from 11 p.m. to 7 or 8 a.m. Usually no problems with falling asleep, although she has TV in bedroom. She usually sleeps on the back and side position. She has loud snoring and witnessed episodes of stopped breathing during sleep according to her . Positive history of restless leg symptoms while falling asleep. The patient wakes up from sleep 3 times with nocturia. In the morning, patient wakes up tired, falling asleep during the day. [place] Sleepiness Scale significantly increased to 15. The patient may take usually 1 nap at 1 or 2 p.m., but she is using more than 7 cups of caffeinated beverages during the day. No history of hypnagogic hallucinations, sleep paralysis or cataplexy. PAST MEDICAL HISTORY: Positive for asthma of exercise, acid reflux, depression, anxiety; ITP, idiopathic thrombocytopenic purpura. PAST SURGICAL HISTORY: Breast CA, status post bilateral mastectomy, status post hysterectomy, cholecystectomy, multiple foot surgeries. MEDICATIONS: 1. Prozac 20 mg once a day. 2. Omeprazole 20 mg once a day. 3. Xanax 0.5 mg on p.r.n. basis. Patient using it extremely rarely. SOCIAL HISTORY: Positive for smoking for about 10 years, 1/4 of pack. Alcohol consumption occasional. FAMILY HISTORY: Crohn's disease by her sister, cancer. REVIEW OF SYSTEMS: Awakenings from sleep, sleepiness during the day. PHYSICAL EXAMINATION: GENERAL: lady without distress. VITAL SIGNS: BP 131/83, HR 68, RR 15, height 5 feet 6 inches, weight 203, BMI 32.7, temperature 98.1, oxygen saturation at room air 97%. HEENT: PERRLA, EOMI. Oropharynx extremely low position of soft palate. Mallampati 4. NECK: 15-1/2 inches in circumference. LUNGS: Clear to percussion and to auscultation. Good air exchange. No wheezing or rhonchi. HEART: S1, S2 regular. No murmurs, gallops, or rubs. ABDOMEN: Slightly obese. EXTREMITIES: No clubbing or cyanosis. ATM TECHNICIAN: Awake, alert, and oriented X3. Cranial nerves 2 to 7 intact. There is no fasciculation or atrophy. noted. No focal deficits observed. IMPRESSION: 1. Loud snoring, witnessed episodes of stopped breathing during the sleep, extremely low position of soft palate, significant excessive daytime sleepiness. [place] Sleepiness Scale is 15. 2. Obstructive sleep apnea-hypopnea syndrome. 3. Obesity, body mass index 32.7. 4. History of restless leg symptoms. 5. Asthma of exercise. 6. Acid reflux. 7. History of depression. 8. History of anxiety. 9. History of breast carcinoma, status post bilateral mastectomy. 10.Status post hysterectomy. 11.History of idiopathic thrombocytic purpura. 12.Status post cholecystectomy. 13.Status post multiple foot surgeries. PLAN: 1. Polysomnography for evaluation of patient's breathing during sleep. 2. CPAP/BiPAP titration if sleep study confirms obstructive sleep apnea-hypopnea syndrome. 3. Preferable position during sleep on the side. 4. No driving if patient feels any sleepiness. 5. I will see patient for follow up visit to explain results of testing and following plan. Thank you very much for referring this patient for consultation. Sincerely, Remberto Waggoner MD, PhD, FAASM Diplomat of [employer] Cosmetician of [facility] [place] MMODL / IJN: [id number] /
== END | disposition home or self-care (01) ==
LOC: SLEEP 13:38
PROVIDERS: ATTEND Internal Medicine
DX: G47.33 Obstructive sleep apnea (adult) (pediatric) (principal); G25.81 Restless legs syndrome; K21.9 Gastro-esophageal reflux disease without esophagitis; F32.9 Major depressive disorder, single episode, unspecified; J45.909 Unspecified asthma, uncomplicated; E66.9 Obesity, unspecified; Z68.32 Body mass index [BMI] 32.0-32.9, adult; Z86.59 Personal history of other mental and behavioral disorders; Z85.3 Personal history of malignant neoplasm of breast; Z90.13 Acquired absence of bilateral breasts and nipples; Z90.710 Acquired absence of both cervix and uterus; Z86.2 Personal history of diseases of the blood and blood-forming organs and certain disorders involving the immune mechanism; Z90.49 Acquired absence of other specified parts of digestive tract; Z79.899 Other long term (current) drug therapy; Z98.890 Other specified postprocedural states
CPT/HCPCS: 99211

== ENCOUNTER 2021-08-28 20:54 | Emergency (ER) | payer OTHER ==
[2021-08-28] MEDS ORDERED: HYDROcodone/APAP 5-325MG 1 EACH TAB PO STA (21:26)
--- NOTE | 2021-08-28 21:44 | ED ---
Extremity Problem HPI - General Chief complaint: Extremity Problem,Nontraumatic Stated complaint: leg pain Time Seen by Provider: 08/28/21 21:26 Source: patient, RN notes reviewed Mode of arrival: ambulatory - History of Present Illness Initial comments: This is a pleasant 45-year-old female with a history of DVT as well as varicosities. Patient states she had a procedure done at Dr. Luna's office on July 21 for a varicose pain in her left lower leg. Inject a chemical into treatment varicose vein. Patient states that since that time she has had intermittent sharp and burning pain along the medial aspect of her left lower leg. She states over the past few days it getting much worse. Today the pain became constant, exacerbated by palpation and pressure over the area. She denies any pain in the ankle or foot. Denies any paresthesias distally. No proximal pain. No knee problems. Patient states she feels well otherwise. Patient is not anticoagulated state that she did DVT about 15 years ago. No headache, no fever or chills, no changes in vision or hearing, no sore throat or difficulty with speech, no neck pain, no chest pain or shortness of breath, no abdominal pain, no nausea or vomiting, no changes in urination or bowel movements, no numbness or tingling, no skin rashes or lesions. MD Complaint: extremity pain - Related Data Home Medications Medication Instructions Recorded Confirmed Omeprazole [PriLOSEC] 20 mg PO DAILY 01/11/15 08/28/21 FLUoxetine HCL [PROzac] 20 mg PO DAILY 07/10/16 08/28/21 Allergies Allergy/AdvReac Type Severity Reaction Status Date / Time midazolam HCl [From Versed] AdvReac Severe ANXIETY, Verified 08/28/21 22:55 CONFUSION hydrocodone [From Vicodin] AdvReac Nausea & Verified 08/28/21 22:55 Vomiting, POSS R/T ANESTHESIA, CAN TAKE NORCO Review of Systems ROS Statement: Those systems with pertinent positive or pertinent negative responses have been documented in the HPI. ROS Other: All systems not noted in ROS Statement are negative. Past Medical History Past Medical History: Asthma, Blood Disorder, Cancer, Deep Vein Thrombosis (DVT), GERD/Reflux, Liver Disease Additional Past Medical History / Comment(s): ITP (2001) post IVIG. HX HEPATITIS B. Hx of DVT LLE. FACTOR 5 BLOOD DISORDER. EXERCISE INDUCED ASTHMA. RT BREAST CANCER (JAN 2015) - RADIATION [place] (LAST -OCTOBER 2015). HX PLATELET TRANSFUSIONS. LIVER ENZYMES ELEV X2 MONTHS. History of Any Multi-Drug Resistant Organisms: None Reported Past Surgical History: Breast Surgery, Cholecystectomy, Orthopedic Surgery, Tubal Ligation, Uterine Ablation Additional Past Surgical History / Comment(s): Bilateral bunionectomies, Mediport insertion and removal,. Bilat mastectomy, expanders (JULY 2015). 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 BREAST RECONSTRUCTION. EGD. varocise vein procedure july 2021 Past Anesthesia/Blood Transfusion Reactions: Previous Problems w/ Anesthesia, Motion Sickness Additional Past Anesthesia/Blood Transfusion Reaction / Comment(s): VERSED MADE HER ANXIOUS & PANICKY. Past Psychological History: Anxiety, Depression Smoking Status: Current every day smoker Past Alcohol Use History: None Reported Past Drug Use History: None Reported - Past Family History Father Additional Family Medical History / Comment(s): kidney stone. Mother Family Medical History: No Reported History Additional Family Medical History / Comment(s): . Brother(s) Family Medical History: No Reported History Additional Family Medical History / Comment(s): . Sister(s) Family Medical History: Cancer Additional Family Medical History / Comment(s): Patient has 2 sisters and one has Crohn's. MELANOMA CA. General Exam General appearance: alert, in no apparent distress Head exam: Present: atraumatic, normocephalic, normal inspection Eye exam: Present: normal appearance, PERRL, EOMI. Absent: scleral icterus, conjunctival injection, periorbital swelling ENT exam: Present: normal exam, mucous membranes moist Neck exam: Present: normal inspection. Absent: tenderness, meningismus, lymphadenopathy Respiratory exam: Present: normal lung sounds bilaterally. Absent: respiratory distress, wheezes, rales, rhonchi, stridor Cardiovascular Exam: Present: regular rate, normal rhythm, normal heart sounds. Absent: systolic murmur, diastolic murmur, rubs, gallop, clicks GI/Abdominal exam: Present: soft, normal bowel sounds. Absent: distended, tenderness, guarding, rebound, rigid Extremities exam: Present: normal inspection, full ROM, tenderness (Tender along the medial aspect of the left lower leg. Distal pulses intact. No erythema. No break in skin integrity. No rash or lesion), normal capillary refill, pedal edema (Scant bilateral edema. Negative Homans sign. No calf tenderness.), other (Capillary refill less than 2 seconds, pulses are 2+ out of 4). Absent: joint swelling, calf tenderness Back exam: Present: normal inspection Neurological exam: Present: alert, oriented X3, CN II-XII intact Psychiatric exam: Present: normal affect, normal mood Skin exam: Present: warm, dry, intact, normal color. Absent: rash Course Vital Signs 08/28/21 21:10 Temperature 98 F Pulse Rate 98 Respiratory 19 Rate Blood Pressure 126/83 O2 Sat by Pulse 98 Oximetry - Consultations Consultation #1: Case was discussed with the patient's vascular surgeon, Dr. Luna who did not want the patient anticoagulated despite the length of the clot. She advised [id number] anti-inflammatories and follow-up in her office. Medical Decision Making - Medical Decision Making Given the patient's symptomology, I believe she likely has nerve irritation stemming from the procedure. However we'll order a venous Doppler. No evidence of infectious etiology or vascular insult otherwise. The case was discussed in detail with ED attending physician. Presentation, findings, treatment plan discussed in detail. Case discussed with vascular surgery. All findings discussed with the patient. All questions answered. Conservative therapy discussed. Patient was told to return to the ER for any signs or symptoms worsen. Told to return immediately if any other problems arise. All questions answered. T reatment plan discussed. Patient in agreement Every effort has been made to ensure accuracy of this dictation. However, due to the limitations of electronic medical records and dictation devices, errors in charting still occur. - Lab Data Result diagrams: 08/28/21 23:14 Lab Results 08/28/21 Range/Units 23:14 Sodium 140 (137-145) mmol/L Potassium 3.8 (3.5-5.1) mmol/L Chloride 104 (98-107) mmol/L Carbon Dioxide 27 (22-30) mmol/L Anion Gap 9 mmol/L BUN 15 (7-17) mg/dL Creatinine 0.98 (0.52-1.04) mg/dL Est GFR (CKD-EPI)AfAm 81 (>60 ml/min/1.73 sqM) Est GFR (CKD-EPI)NonAf 70 (>60 ml/min/1.73 sqM) Glucose 105 H (74-99) mg/dL Calcium 8.9 (8.4-10.2) mg/dL Disposition Clinical Impression: Superficial thrombophlebitis Disposition: HOME SELF-CARE Condition: Good Instructions (If sedation given, give patient instructions): Superficial Thrombophlebitis (ED) Is patient prescribed a controlled substance at d/c from ED?: No Referrals: Ruma Luna DO [STAFF PHYSICIAN] - 1-2 days Time of Disposition: 23:37
--- NOTE | 2021-08-28 22:17 | US ---
EXAMINATION TYPE: US venous doppler duplex LE LT DATE OF EXAM: 08/28/2021 10:07 PM COMPARISON: [id number] CLINICAL HISTORY: Left leg pain. Patient had left lower extremity varicose vein surgery in July. Pat ient presents with left calf pain. SIDE PERFORMED: Left TECHNIQUE: The lower extremity deep venous system is examined utilizing real time linear array sonog jessica with graded compression, doppler sonography and color-flow sonography. VESSELS IMAGED: Common Femoral Vein Deep Femoral Vein Greater Saphenous Vein * Femoral Vein Popliteal Vein Small Saphenous Vein * Proximal Calf Veins (* superficial vessels) PTV Peroneal v Left Leg: Negative for DVT, however, there appears to be thrombus within a superficial vessel in the left calf. Grayscale, color doppler, spectral doppler imaging performed of the deep veins of the lower extremiti es. There is normal flow, compressibility, vascular waveforms. IMPRESSION: 1. No evidence for DVT within the left lower extremity. 2. Superficial thrombophlebitis involving the superficial vein of the left calf possibly the peronea l vein per precision honer.
[2021-08-28 23:30] LABS: Calcium 8.9 mg/dL (8.4-10.2); Potassium 3.8 mmol/L (3.5-5.1)
[2021-08-29] LABS: HCT 45.2 % (34.0-46.0); HGB 15.2 gm/dL (11.4-16.0); MCH 29.7 pg (25.0-35.0); MCHC 33.6 g/dL (31.0-37.0); MCV 88.5 fL (80.0-100.0); Mean Platelet Volume 15.8; RDW 13.1 % (11.5-15.5); WBC 11.3 k/uL (3.8-10.6)
[2021-08-29 00:02] VITALS: BP 123/87; PULSE 84; RESP 16; TEMP 98.5
[2021-08-29 00:41] LABS: Platelet Count 38 k/uL (150-450)
== END 2021-08-29 00:02 | disposition home or self-care (01) ==
LOC: EC 20:54
DX: J45.909 Unspecified asthma, uncomplicated (principal); F17.200 Nicotine dependence, unspecified, uncomplicated; I80.252 Phlebitis and thrombophlebitis of left calf muscular vein; K21.9 Gastro-esophageal reflux disease without esophagitis; Z79.899 Other long term (current) drug therapy; Z88.4 Allergy status to anesthetic agent; Z88.5 Allergy status to narcotic agent
CPT/HCPCS: 36415; 80048; 85027; 99284

== ENCOUNTER → 2022-02-12 | Outpatient (CLI) | payer OTHER ==
--- NOTE | 2022-02-12 14:06 | P.SLEEP ---
History of Present Illness DATE: 02/12/2022 CONSULTATION/NEW PATIENT EVALUATION HISTORY OF PRESENT ILLNESS/SLEEP-WAKE EVALUATION: 46 year old lady had been evaluated in the sleep center for possible obstructive sleep apnea hypopnea syndrome. SLEEP SCHEDULE: Usually sleep schedule on weekdays from 9:30 PM to 4:20 AM, during days off from 11 PM to 7 AM. FALLING ASLEEP: Sometimes problems with the falling asleep, patient has TV set and bedroom. DURING SLEEP: She sleeps on the back and side position with loud snoring and witnessed episodes of sleep apneas by her . No history of hypnogogical hallucinations, sleep paralysis, or cataplexy. DURING THE DAY/WAKE STATE: In the morning patient wake up tired, falling asleep during the day. [place] sleepiness scale is significantly increased to 16. Patient usually take 1 nap around 10 AM. PAST MEDICAL HISTORY: Depression, anxiety, breast cancer, acid reflux, exercise- induced asthma, seasonal ALLERGY, idiopathic thrombocytopenia. PAST SURGICAL HISTORY: Bilateral mastectomy in 2016, cholecystectomy, total hysterectomy. MEDICATIONS: Omeprazole 20 mg once a day, Prozac 20 mg once a day, Xanax 0.5 mg as needed. SOCIAL HISTORY: Positive history of smoking on and off for about 15 years , alcohol consumption occasional. FAMILY HISTORY: Heart problems, cancer. REVIEW OF SYSTEMS: Loud snoring, multiple awakenings from sleep with nocturia, sleepiness during the day. No fevers. No double vision. No recent chest pain. No shortness of breath. No abdominal pain. No bleeding episodes. No blood in urine. No seizure episodes. PHYSICAL EXAMINATION: GENERAL: A pleasant patient without any distress. VITAL SIGNS: BP 146/72, HR 74, RR 18, weight 207.6 pounds, height 5 foot 6-1/2 inches, body mass index 32.9. HEENT: PERRLA, EOMI. Evaluation of oropharynx showed tongue protrudes midline, low position of soft palate Mallampati 4. NECK: Supple. No JVD. Thyroid is not palpable. 17 inches in circumference. LUNGS: Clear to percussion and to auscultation. Good air exchange. No wheezing or rhonchi. HEART: S1, S2 regular. No murmurs, gallops or rubs. ABDOMEN: Soft and nontender. Bowel sounds are present. No organomegaly appreciated. EXTREMITIES: No clubbing or cyanosis. TRADING FLOOR OPERATOR: Awake, alert, and oriented x3. Cranial nerves 2 to 7 intact. There is no fasciculation or atrophy noted. No focal deficits observed. ASSESSMENT: 1. Loud snoring, witnessed episodes of sleep apneas, multiple awakenings from sleep, significant excessive daytime sleepiness [place] Sleepiness Scale increased to 16, extremely low position of soft palate Mallampati 4, wide neck 17 inches in circumference. Obstructive sleep apnea hypopnea syndrome. 2. History of breast see status post bilateral mastectomy. 3 history of depression. 4. History of anxiety. 5 acid reflux. 6. Exercise-induced asthma. 7. History of idiopathic thrombocytopenia. 8. Status post total hysterectomy. 9. Status post cholecystectomy. 10. Mild obesity. PLAN: 1. Polysomnography for evaluation of patient's breathing during sleep. 2. CPAP/BiPAP titration if sleep study confirms obstructive sleep apnea- hypopnea syndrome. 3. Preferable position during sleep on the side. 4. No driving if patient feels any sleepiness. Patient is aware of civil and criminal liability for unsafe driving. 5. Sleep hygiene with regular sleep time for at least 7.5-8 hours. 6. Watching and losing weight. Thank you very much for referring this patient for consultation. Sincerely, Remberto Waggoner MD, PhD, FAASM. Diplomat of [place] [employer], Sleep Medicine Board by [place] [employer] [place] [employer] Director Of Collections And Archives of [facility] [place] Past Medical History Past Medical History: Asthma, Blood Disorder, Cancer, Deep Vein Thrombosis (DVT), GERD/Reflux, Liver Disease Additional Past Medical History / Comment(s): ITP (2001) post IVIG. HX HEPATITIS B. Hx of DVT LLE. FACTOR 5 BLOOD DISORDER. EXERCISE INDUCED ASTHMA. RT BREAST CANCER (JAN 2015) - RADIATION [place] (LAST -OCTOBER 2015). HX PLATELET TRANSFUSIONS. LIVER ENZYMES ELEV X2 MONTHS. History of Any Multi-Drug Resistant Organisms: None Reported Past Surgical History: Breast Surgery, Cholecystectomy, Orthopedic Surgery, Tubal Ligation, Uterine Ablation Additional Past Surgical History / Comment(s): Bilateral bunionectomies, Mediport insertion and removal,. Bilat mastectomy, expanders (JULY 2015). 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 BREAST RECONSTRUCTION. EGD. varocise vein procedure july 2021 Past Anesthesia/Blood Transfusion Reactions: Previous Problems w/ Anesthesia, Motion Sickness Additional Past Anesthesia/Blood Transfusion Reaction / Comment(s): VERSED MADE HER ANXIOUS & PANICKY. Past Psychological History: Anxiety, Depression Smoking Status: Current every day smoker Past Alcohol Use History: None Reported Past Drug Use History: None Reported - Past Family History Father Additional Family Medical History / Comment(s): kidney stone. Mother Family Medical History: No Reported History Additional Family Medical History / Comment(s): . Brother(s) Family Medical History: No Reported History Additional Family Medical History / Comment(s): . Sister(s) Family Medical History: Cancer Additional Family Medical History / Comment(s): Patient has 2 sisters and one has Crohn's. MELANOMA CA. Medications and Allergies Home Medications Medication Instructions Recorded Confirmed Type Omeprazole [PriLOSEC] 20 mg PO DAILY 01/11/15 08/28/21 History FLUoxetine HCL [PROzac] 20 mg PO DAILY 07/10/16 08/28/21 History Allergies Allergy/AdvReac Type Severity Reaction Status Date / Time midazolam HCl [From Versed] AdvReac Severe ANXIETY, Verified 08/28/21 22:55 CONFUSION hydrocodone [From Vicodin] AdvReac Nausea & Verified 08/28/21 22:55 Vomiting, POSS R/T ANESTHESIA, CAN TAKE NORCO Sleep Note - Sleep Note Sleep Note: Temperature: Pulse Rate: Respiratory Rate: Blood Pressure: SpO2: Height: Weight: BMI: Neck Circumference:
== END ==
LOC: SLEEP 13:37
PROVIDERS: ATTEND Internal Medicine
DX: G47.33 Obstructive sleep apnea (adult) (pediatric) (principal); F32.A Depression, unspecified; F41.9 Anxiety disorder, unspecified; K21.9 Gastro-esophageal reflux disease without esophagitis; J45.909 Unspecified asthma, uncomplicated; Z90.13 Acquired absence of bilateral breasts and nipples; D69.3 Immune thrombocytopenic purpura; Z90.49 Acquired absence of other specified parts of digestive tract; E66.9 Obesity, unspecified; Z90.710 Acquired absence of both cervix and uterus; Z86.718 Personal history of other venous thrombosis and embolism; F17.200 Nicotine dependence, unspecified, uncomplicated; Z88.6 Allergy status to analgesic agent; Z88.8 Allergy status to other drugs, medicaments and biological substances; Z68.32 Body mass index [BMI] 32.0-32.9, adult
CPT/HCPCS: 99211

== ENCOUNTER 2022-04-03 10:32 | Day surgery (SDC) | payer OTHER ==
[2022-04-01 15:17] VITALS: BMI 32.3
[2022-04-03 11:03] VITALS: RESP 16; TEMP 98.3
[2022-04-03] MEDS: LACTATED RINGERS 1,000 ML IV SCH ×2 (11:03→11:10)
[2022-04-03] MEDS ORDERED: PROPOFOL 10 MG/ML 20 ML VIAL IV ONE (12:21)
--- NOTE | 2022-04-03 12:35 | P.PCN ---
Date of Procedure: 04/03/22 Procedure(s) Performed: BRIEF HISTORY: Patient is a 46-year-old pleasant white female scheduled for an elective colonoscopy as a part of screening for colon cancer. PROCEDURE PERFORMED: Colonoscopy with biopsy. PREOPERATIVE DIAGNOSIS: Screening for colon cancer. IV sedation per Anesthesia. PROCEDURE: After informed consent was obtained, the patient, was brought into the endoscopy unit. IV sedation was administered by Anesthesia under continuous monitoring. Digital rectal examination was normal. Initially the Olympus CF-160 flexible video colonoscope was then inserted in the rectum, gradually advanced into the cecum without any difficulty. Careful examination was performed as the scope was gradually being withdrawn. Ileocecal valve and the appendiceal orifice were visualized and appeared normal. Prep was excellent. Mucosa of the cecum, ascending colon, transverse colon, descending colon, appeared normal. The sigmoid: There was a 3-4 mm flat polyp that was removed by cold biopsy. Rest of the sigmoid colon, and rectum appeared normal. Retroflexion was performed in the rectum and no lesions were seen. The patient tolerated the procedure well. IMPRESSION: 3-4 mm flat; sigmoid polyp status post cold biopsy Rest of the colon appeared normal RECOMMENDATIONS: Findings of this examination were discussed with the patient as well as her family. She was advised to follow with the biopsy results. If the biopsy reveals adenoma she can have a repeat colonoscopy in 5 years.
[2022-04-03 12:58] VITALS: BP 138/92; PULSE 72
== END 2022-04-03 13:41 | disposition home or self-care (01) ==
LOC: ORWHC2ENDO 10:32
PROVIDERS: ATTEND Internal Medicine Gastroenterology
DX: Z12.11 Encounter for screening for malignant neoplasm of colon (principal); K63.5 Polyp of colon; F41.9 Anxiety disorder, unspecified; F32.A Depression, unspecified; K21.9 Gastro-esophageal reflux disease without esophagitis; Z88.8 Allergy status to other drugs, medicaments and biological substances; Z87.891 Personal history of nicotine dependence; Z79.899 Other long term (current) drug therapy
CPT/HCPCS: 88305; 45380; J2704

== ENCOUNTER → 2022-09-17 | Outpatient (CLI) | payer OTHER ==
--- NOTE | 2022-09-17 16:49 | P.PN ---
Subjective DATE: 09/17/2022 FOLLOW UP VISIT. Patient with obstructive sleep apnea hypopnea syndrome return to sleep center for follow-up visit. Recently patient had sleep study which documented obstructive sleep apnea hypopnea syndrome. Patient was initiated on PAP therapy and today is first visit after treatment was started. Patient was able to use PAP equipment every night for the whole night. The patient does not have significant problems with the mask, PAP pressure and humidification. [place] sleepiness scale is 6, which is normal. I checked information from PAP unit. PAP unit pressure 5-11, average 10.4 cm H2O. Usage is 97% and around 70 % for more then 4 hours, average 5 hours per night. Leak is 30.5 l/m, which is in acceptable range. Apnea Hypopnea Index is to 0.9, which is normal. MEDICATIONS:1. Omeprazole 20 mg once a day 2. Prozac 20 mg once a day 3. , 0.5 mg as needed During physical exam: GENERAL: A pleasant patient without any distress. VITAL SIGNS: BP 117/79, HR 83, RR 12 , weight 190.6, temperature 97.1, oxygen saturation at room air 98 . HEENT: PERRLA, EOMI.low position of soft palate, Mallapati 4 . NECK: Supple. No JVD. LUNGS: Clear to percussion and to auscultation. Good air exchange. No wheezing or rhonchi. HEART: S1, S2 regular. ABDOMEN: Soft and nontender. Slightly obese EXTREMITIES: No clubbing or cyanosis. MARRIAGE AND FAMILY TEACHER: Awake, alert, and oriented x3. No focal deficit. Impressions: 1. Obstructive sleep apnea-hypopnea syndrome. Patient demonstrated good compliance with treatment, benefiting from treatment. 2. History of depression. 3. History of breast cancer, status post bilateral mastectomy. 4. History of anxiety. 5. Exercised induced asthma. 6. History of idiopathic thrombocytopenia. 7. Status post total hysterectomy. 8. Status post cholecystectomy. Plan: 1. Continue using PAP equipment every night for the whole night. 2. To change air filter at least 1-2 times per month. 3. PAP unit should stay lower then position of the head. 4. Advised patient to remove all remaining water from humidifier canister daily and make it dry after each usage. Refill canister with fresh distilled water before each usage. 5. Sleep hygiene with regular time in bed for at least 8 hours. 6. Precautions related to driving. No driving if feel any sleepiness. 7. I will maintain prescription for PAP supplies including mask, tube, filters. 8. Follow up visit in 6 months or earlier if patient has any problems. 9. Watching weight. Thank you very much for allowing me to participate in the management of your patient. Remberto Waggoner MD, PhD, FAASM. Diplomat of [place] Board of Sleep Medicine, Sleep Medicine Board by [place] Board of Internal Medicine Structural Fitter of [facility] [place]
== END ==
LOC: SLEEP 15:30
PROVIDERS: ATTEND Internal Medicine
DX: G47.33 Obstructive sleep apnea (adult) (pediatric) (principal); D69.3 Immune thrombocytopenic purpura; F32.A Depression, unspecified; F41.9 Anxiety disorder, unspecified; J45.990 Exercise induced bronchospasm; Z79.899 Other long term (current) drug therapy; Z85.3 Personal history of malignant neoplasm of breast; Z90.13 Acquired absence of bilateral breasts and nipples; Z90.49 Acquired absence of other specified parts of digestive tract; Z90.710 Acquired absence of both cervix and uterus; Z98.890 Other specified postprocedural states; Z99.89 Dependence on other enabling machines and devices; Z88.5 Allergy status to narcotic agent; Z88.8 Allergy status to other drugs, medicaments and biological substances; Z87.891 Personal history of nicotine dependence
CPT/HCPCS: 99212

== ENCOUNTER → 2023-01-06 | Outpatient (CLI) | payer OTHER ==
--- NOTE | 2023-01-06 11:56 | US ---
EXAMINATION TYPE: US venous doppler duplex LE LT DATE OF EXAM: 01/06/2023 11:21 AM COMPARISON: NONE CLINICAL INDICATION: Female, 47 years old with history of I82.402 THROMBOSIS; Pain in calf area. Hx o f DVT patient has varicose veins. SIDE PERFORMED: Left TECHNIQUE: The lower extremity deep venous system is examined utilizing real time linear array sonog jessica with graded compression, doppler sonography and color-flow sonography. VESSELS IMAGED: Common Femoral Vein Deep Femoral Vein Greater Saphenous Vein * Femoral Vein Popliteal Vein Small Saphenous Vein * Proximal Calf Veins (* superficial vessels) Left Leg: Negative for DVT area of pain in calf area calf vein. Superficial thrombus within a noncompressible calf vein appears to be present. This could correlate w ith a superficial venous thrombosis, there is a history of recent varicose vein treatment. IMPRESSION: 1. Left lower extremity ultrasound negative for deep venous thrombosis. 2. Superficial venous thrombosis. This may relate to recent treatment.
== END | disposition home or self-care (01) ==
LOC: RADUSWWP 11:01
PROVIDERS: ATTEND Surgery
DX: I82.402 Acute embolism and thrombosis of unspecified deep veins of left lower extremity (principal); Z86.718 Personal history of other venous thrombosis and embolism

== ENCOUNTER → 2023-04-15 | Outpatient (CLI) | payer OTHER ==
--- NOTE | 2023-04-15 11:12 | P.PN ---
Subjective DATE: 04/15/2023 FOLLOW UP VISIT. Patient with obstructive sleep apnea hypopnea syndrome return to sleep center for follow-up visit. Information from previous visit have been reviewed. Patient is using PAP equipment every night for the whole night, getting PAP supplies in time. The patient does not have significant problems with the mask, PAP unit and humidification. [place] sleepiness scale is 8, which is normal. I checked information from PAP unit and discussed it with patient. PAP unit pressure in 6-11, average 10.7 cm H2O. Usage is 90 % for more then 4 hours, average 5.75 hours per night. Leak is 28.2 l/m, which is in acceptable range. Apnea Hypopnea Index is 2.0, which is normal. MEDICATIONS:1. Omeprazole 20 mg once a day 2. Prozac 20 mg once a day 3. Xanax 0.5 mg half of the tablet as needed During physical exam: GENERAL: A pleasant patient without any distress. VITAL SIGNS: BP 132/80, HR 77, RR 12 , weight 177.2, temperature 98.9, oxygen saturation at room air 100 % . HEENT: PERRLA, EOMI.low position of soft palate, Mallapati 4 . NECK: Supple. No JVD. LUNGS: Clear to percussion and to auscultation. Good air exchange. No wheezing or rhonchi. HEART: S1, S2 regular. ABDOMEN: Soft and nontender.[] EXTREMITIES: No clubbing or cyanosis. SUPPLEMENTAL MANAGER: Awake, alert, and oriented x3. No focal deficit. Impressions: 1. Obstructive sleep apnea-hypopnea syndrome. Patient demonstrated great compliance with treatment, benefiting from treatment. 2. History of depression. 3. History of breast cancer, status post bilateral mastectomy. 4. Exercise-induced asthma. 5. History of anxiety. 6. History of idiopathic thrombocytopenia. 7. Status post cholecystectomy. 8. Status post total hysterectomy. Plan: 1. Continue using PAP equipment every night for the whole night. 2. To change air filter at least 1-2 times per month. 3. PAP unit should stay lower then position of the head. 4. Advised patient to remove all remaining water from humidifier canister daily and make it dry after each usage. Refill canister with fresh distilled water before each usage. 5. Sleep hygiene with regular time in bed for at least 8 hours. 6. Precautions related to driving. No driving if feel any sleepiness. 7. I will maintain prescription for PAP supplies including mask, tube, filters. 8. Watching weight. 9. Follow up visit in 6 months or earlier if patient has any problems. Thank you very much for allowing me to participate in the management of your patient. Remberto Waggoner MD, PhD, FAASM. Diplomat of [place] [employer] Medicine, Sleep Medicine Board by [place] [employer] Medicine Sr. Director of [facility] [place]
== END ==
LOC: SLEEP 10:31
PROVIDERS: ATTEND Internal Medicine
DX: G47.33 Obstructive sleep apnea (adult) (pediatric) (principal); D69.3 Immune thrombocytopenic purpura; F41.9 Anxiety disorder, unspecified; F32.A Depression, unspecified; J45.990 Exercise induced bronchospasm; Z90.49 Acquired absence of other specified parts of digestive tract; Z85.3 Personal history of malignant neoplasm of breast; Z90.13 Acquired absence of bilateral breasts and nipples; Z90.710 Acquired absence of both cervix and uterus; Z88.5 Allergy status to narcotic agent; Z88.1 Allergy status to other antibiotic agents; Z87.891 Personal history of nicotine dependence
CPT/HCPCS: 99212

== ENCOUNTER → 2023-07-06 | Outpatient (CLI) | payer OTHER ==
[2023-07-06 16:57] LABS: ALT 29 U/L (8-44); AST 19 U/L (13-35); Albumin 4.7 g/dL (3.8-4.9); Albumin/Globulin Ratio 2.14 Ratio (1.60-3.17); Alkaline Phosphatase 49 U/L (41-126); BUN/Creat Ratio 17.67 Ratio (12.00-20.00); Blood Urea Nitrogen 15.9 mg/dL (9.0-27.0); Calcium 9.7 mg/dL (8.7-10.3); Carbon Dioxide 26.6 mmol/L (21.6-31.8); Chloride 102 mmol/L (96-109); Chol/HDL Ratio 2.37 Ratio; Globulin 2.2 g/dL (1.6-3.3); Glucose 87 mg/dL (70-110); LDL Cholesterol,Calculated 88.2 mg/dL (0.0-131.0); Sodium 140 mmol/L (135-145); Total Bilirubin 0.6 mg/dL (0.3-1.2); Total Protein 6.9 g/dL (6.2-8.2); VLDL Calculation 11.08 mg/dL (5.00-40.00)
== END | disposition home or self-care (01) ==
LOC: LABWHC1 07-05 11:05
PROVIDERS: ATTEND Family Medicine
DX: Z00.00 Encounter for general adult medical examination without abnormal findings (principal); R53.83 Other fatigue
CPT/HCPCS: 36415; 80053; 80061; 84443

== ENCOUNTER → 2023-11-25 | Outpatient (CLI) | payer OTHER ==
[2023-11-25 10:51] VITALS: BP 124/82; PULSE 58; RESP 16; TEMP 98.1
--- NOTE | 2023-11-25 11:18 | P.PROGSL ---
Subjective DATE: 11/25/2023 FOLLOW UP VISIT. Patient with obstructive sleep apnea hypopnea syndrome return to sleep center for follow-up visit. Information from previous visit have been reviewed. Patient is using PAP equipment every night for the whole night, getting PAP supplies in time. The patient does not have significant problems with PAP unit and humidification. Facemask is partially broken. [place] sleepiness scale is 9, which is borderline. I checked information from PAP unit. PAP unit pressure 6-11, average 10.5 cm H2O. Usage is 93% and 70% for more then 4 hours, average 5.5 hours per night. Leak is increased to 46.4 l/m. Apnea Hypopnea Index is 1.7, which is normal. MEDICATIONS: Please see below During physical exam: GENERAL: A pleasant patient without any distress. VITAL SIGNS: Please see below, weight 187 pounds, BMI 30.6. HEENT: PERRLA, EOMI.low position of soft palate, Mall[place]ati 4 . NECK: Supple. No JVD. LUNGS: Clear to percussion and to auscultation. Good air exchange. No wheezing or rhonchi. HEART: S1, S2 regular. ABDOMEN: Soft and nontender.[] EXTREMITIES: No clubbing or cyanosis. WEB PRESS ROLL TENDER: Awake, alert, and oriented x3. No focal deficit. Impressions: 1. Obstructive sleep apnea-hypopnea syndrome. Patient demonstrated great compliance with treatment, benefiting from treatment. 2. Mild obesity, BMI 30.6, patient increased weight on 10 pounds comparing with previous visit. 3. History of breast cancer, status post bilateral mastectomy. 4. History of depression. 5. Exercise-induced asthma. 6. History of anxiety. 7. History of idiopathic thrombocytopenia. 8. Status post total hysterectomy. 9. Status post cholecystectomy. Plan: 1. Continue using PAP equipment every night for the whole night. To replace CPAP mask immediately. 2. To change air filter at least 1-2 times per month. 3. PAP unit should stay lower then position of the head. 4. Advised patient to remove all remaining water from humidifier canister daily and make it dry after each usage. Refill canister with fresh distilled water before each usage. 5. Sleep hygiene with regular time in bed for at least 8 hours. 6. Precautions related to driving. No driving if feel any sleepiness. 7. I will maintain prescription for PAP supplies including mask, tube, filters. 8. Follow up visit in 6 months or earlier if patient has any problems. 9. Watching and losing weight. Thank you very much for allowing me to participate in the management of your patient. Remberto Waggoner MD, PhD, FAASM. Diplomat of [place] [employer], Sleep Medicine Board by [place] [employer] Planning Analyst of [facility] [place] Objective - Vital Signs Vital Signs: Vital Signs Temp 98.1 F 11/25/23 10:51 Pulse 58 L 11/25/23 10:51 Resp 16 11/25/23 10:51 BP 124/82 11/25/23 10:51 Pulse Ox 97 11/25/23 10:51 FiO2 Intake & Output 11/24/23 11/25/23 11/25/23 18:59 06:59 18:59 Weight 84.822 kg Home Medications: Home Medications Medication Instructions Recorded Confirmed Type Omeprazole [PriLOSEC] 20 mg PO QAM 01/11/15 11/25/23 History FLUoxetine HCL [PROzac] 20 mg PO QAM 07/10/16 11/25/23 History ALPRAZolam [Xanax] 0.25 mg PO DAILY PRN 04/01/22 11/25/23 History
== END | disposition home or self-care (01) ==
LOC: 3 N SLEEP 10:38
PROVIDERS: ATTEND Internal Medicine
DX: G47.33 Obstructive sleep apnea (adult) (pediatric) (principal); E66.9 Obesity, unspecified; F41.9 Anxiety disorder, unspecified; J45.909 Unspecified asthma, uncomplicated; Z90.49 Acquired absence of other specified parts of digestive tract; Z90.710 Acquired absence of both cervix and uterus; Z99.89 Dependence on other enabling machines and devices; Z86.2 Personal history of diseases of the blood and blood-forming organs and certain disorders involving the immune mechanism; Z90.13 Acquired absence of bilateral breasts and nipples; Z85.3 Personal history of malignant neoplasm of breast; Z68.30 Body mass index [BMI] 30.0-30.9, adult; Z88.8 Allergy status to other drugs, medicaments and biological substances; Z88.5 Allergy status to narcotic agent; Z87.891 Personal history of nicotine dependence
CPT/HCPCS: 99212

== ENCOUNTER → 2024-02-23 | Outpatient (CLI) | payer OTHER ==
--- NOTE | 2024-02-23 16:53 | CT ---
EXAMINATION TYPE: CT tmj maxillofacial wo con CT DLP: 403.7 mGycm, Automated exposure control for dose reduction was used. DATE OF EXAM: 02/23/2024 4:32 PM COMPARISON: None. CLINICAL INDICATION:Female, 48 years old with history of R68.84 JAW PAIN; PHH, left sided jaw pain TECHNIQUE: Multiple unenhanced axial CT images were obtained of the facial bones soft tissue and bone windows. Coronal and axial reformatted images were also provided in soft tissue and bone windows an d submitted for interpretation. FINDINGS: Dental mild increased streaky artifact which limits evaluation. There is no evidence of fracture, subluxation, dislocation, or significant soft tissue swelling. The orbital contents are unremarkable. The left temporal-mandibular joints appears unremarkable. There is mild cortical irregularity involving the left temporal mandibular joint consistent with degenerative change. The visualized portion of the paranasal sinuses appear clear. IMPRESSION: 1. No acute fracture. 2. 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 [facility], , 02/23/2024 4:51 PM
== END | disposition home or self-care (01) ==
LOC: RADCTMAIN 15:21
PROVIDERS: ATTEND Family Medicine
DX: M26.69 Other specified disorders of temporomandibular joint (principal)
CPT/HCPCS: 70486

== ENCOUNTER → 2024-07-27 | Outpatient (CLI) | payer OTHER ==
[2024-07-27 10:44] VITALS: BP 124/80; PULSE 68; RESP 16; TEMP 98.1
--- NOTE | 2024-07-27 11:00 | P.PROGSL ---
Subjective DATE: 07/27/2024 FOLLOW UP VISIT. Patient with obstructive sleep apnea hypopnea syndrome return to sleep center for follow-up visit. Information from previous visit have been reviewed. Patient is using PAP equipment every night for the whole night, getting PAP supplies in time. The patient does not have significant problems with the mask, PAP unit and humidification. [place] sleepiness scale is 9, which is borderline normal. I checked information from PAP unit. PAP unit pressure 6-11, average 10.8 cm H2O. Usage is 85% for more then 4 hours, average 6.2 hours per night. Leak is increased to 40 l/m. Apnea Hypopnea Index is 1.9, which is normal. MEDICATIONS have been reviewed, please see below. During physical exam: GENERAL: A pleasant patient without any distress. VITAL SIGNS: Please see below, weight is 193 lbs. HEENT: PERRLA, EOMI.low position of soft palate, Mallapati 4 . NECK: Supple. No JVD. LUNGS: Clear to percussion and to auscultation. Good air exchange. No wheezing or rhonchi. HEART: S1, S2 regular. ABDOMEN: Soft and nontender.[] EXTREMITIES: No clubbing or cyanosis. HAM DOCTOR: Awake, alert, and oriented x3. No focal deficit. Impressions: 1. Obstructive sleep apnea-hypopnea syndrome. Patient demonstrated great compliance with treatment, benefiting from treatment. 2. Mild obesity, BMI 31.6, patient increased weight on 6 pounds comparing with previous visit. 3. History of breast cancer status post bilateral mastectomy. 4. History of depression. 5. Exercise induced asthma. 6. History of anxiety. 7. History of idiopathic thrombocytopenia. 8. Status post total hysterectomy. 9. Status post cholecystectomy. Plan: 1. Continue using PAP equipment every night for the whole night. 2. Sleep hygiene with regular time in bed for at least 7.5-8 hours 3. PAP unit should stay lower then position of the head. 4. Advised patient to remove all remaining water from humidifier canister daily and make it dry after each usage. Refill canister with fresh distilled water before each usage. 5. Watching and losing weight. 6. Precautions related to driving. No driving if feel any sleepiness. 7. I will maintain prescription for PAP supplies including mask, tube, filters. 8. Follow up visit in 8 months or earlier if patient has any problems. Thank you very much for allowing me to participate in the management of your patient. Remberto Waggoner MD, PhD, FAASM. Diplomat of [place] [employer], Sleep Medicine Board by [place] [employer] Relationship Advisor of [facility] [place] Objective - Vital Signs Vital Signs: Vital Signs Temp 98.1 F 07/27/24 10:43 Pulse 68 07/27/24 10:43 Resp 16 07/27/24 10:43 BP 124/80 07/27/24 10:43 Pulse Ox 100 07/27/24 10:43 FiO2 Intake & Output 07/26/24 07/27/24 07/27/24 18:59 06:59 18:59 Weight 87.543 kg Home Medications: Home Medications Medication Instructions Recorded Confirmed Type Omeprazole [PriLOSEC] 20 mg PO QAM 01/11/15 07/27/24 History FLUoxetine HCL [PROzac] 20 mg PO QAM 07/10/16 07/27/24 History ALPRAZolam [Xanax] 0.25 mg PO DAILY PRN 04/01/22 07/27/24 History
== END ==
LOC: 3 N SLEEP 10:28
PROVIDERS: ATTEND Internal Medicine
DX: G47.33 Obstructive sleep apnea (adult) (pediatric) (principal); E66.9 Obesity, unspecified; Z68.31 Body mass index [BMI] 31.0-31.9, adult; Z85.3 Personal history of malignant neoplasm of breast; Z90.13 Acquired absence of bilateral breasts and nipples; Z86.59 Personal history of other mental and behavioral disorders; Z90.49 Acquired absence of other specified parts of digestive tract; Z90.710 Acquired absence of both cervix and uterus; Z86.2 Personal history of diseases of the blood and blood-forming organs and certain disorders involving the immune mechanism; Z87.891 Personal history of nicotine dependence; Z88.4 Allergy status to anesthetic agent; Z88.5 Allergy status to narcotic agent
CPT/HCPCS: 99212

== ENCOUNTER → 2024-08-09 | Outpatient (CLI) | payer OTHER ==
--- NOTE | 2024-08-09 09:09 | USB ---
Reason for Exam: Clinical finding. Patient History: Menarche at age 18. First Full-Term at age 20. Breast cancer, age 39. 02/08/2015, Benign Core Biopsy on the left side. 02/08/2015, Malignant Core Biopsy on the right side. Maternal aunt had breast cancer, age 45. Technique: Method: Targeted. Prior Study Comparison: 01/29/2015 Bilateral Diagnostic Mammogram, [facility]. 07/18/2015 Right Diagnostic Mammogram, [facility]. Findings: The lateral section of the breast of the left breast and the axilla of both breasts were scanned. Electronically signed and approved by: Sae Mcgee M.D. [facility]iolog[facility]
== END | disposition home or self-care (01) ==
LOC: RADUSWWP 07:08
PROVIDERS: ATTEND Internal Medicine Hematology & Oncology
DX: C50.411 Malignant neoplasm of upper-outer quadrant of right female breast (principal); D69.3 Immune thrombocytopenic purpura; J45.909 Unspecified asthma, uncomplicated; Z17.0 Estrogen receptor positive status [ER+]; Z80.3 Family history of malignant neoplasm of breast; Z85.3 Personal history of malignant neoplasm of breast